=== PATIENT | female | born 1940 | race Caucasian/White ===

== ENCOUNTER → 2017-04-14 08:09 | Outpatient (CLI) | payer MEDICARE, SELFPAY ==
--- NOTE | 2017-04-14 08:36 | MRI_ITS ---
STUDY: MRI LUMBAR SPINE WITHOUT CONTRAST REASON FOR EXAM: Female, 76 years old. Cauda equina syndrome. Degenerative disc disease. Low back pain/spasms radiating to thighs x1 week. TECHNIQUE: Standardized fat and water weighted pulse sequences were obtained in the sagittal and axial planes. COMPARISON: Lumbar spine radiographs 04/13/2017. FINDINGS: T10-T11: (Sagittal only). Normal endplates. Normal disc height, hydration and morphology. Normal central canal and bilateral intervertebral neural foramina. T11-T12: (Sagittal only). Small anterior disc protrusion underneath the small anterior marginal spurs. Normal endplates. Mild disc space height narrowing. No ventral extradural defect. Normal central canal and bilateral intervertebral neural foramina. T12-L1: Normal endplates. Normal disc height, hydration and morphology. Normal bilateral facet joints. Normal central canal and bilateral lateral recesses. Normal bilateral intervertebral neural foramina. Left posterior renal parenchymal cyst is visible at this level. Normal lumbar lordosis. There is no substantial scoliosis. Normal conus medullaris that terminates at the lower L1 vertebral body level. L1-2: Minimal anterior marginal spurs. Normal endplates. Mild disc space height narrowing with moderate loss of disc hydration. Small posterior bulging disc. Normal central canal and bilateral lateral recesses. Normal facet joints. Normal bilateral intervertebral neural foramina. Multiple bilateral renal parenchymal cysts are visible at this level. L2-3: Prominent anterior marginal spurs. Normal endplates. Mild disc space height narrowing with moderate loss of disc hydration. Small right-sided far lateral posterior disc protrusion (series 3, images 10-11; series 2, images 10-11). Normal central canal and bilateral lateral recesses. Moderate right degenerative facet arthropathy. Mild to moderate left degenerative facet arthropathy. Normal bilateral intervertebral neural foramina. L3-4: Normal endplates. Mild disc space height narrowing with moderate loss of disc hydration. Small posterior annular bulging disc. Normal central canal and bilateral lateral recesses. Left posterior ligamentum flavum hypertrophy. Mild to moderate asymmetric degenerative facet arthropathy. Normal bilateral intervertebral neural foramina. L4-5: Pronounced right-sided disc space height narrowing with Modic type I degenerative vertebral marrow edema underneath the right side of the vertebral endplates. Small right far lateral but posterior disc protrusion (series 2 and 3, images 9-10). Normal central canal and bilateral lateral recesses. Mild asymmetric degenerative facet arthropathy. Normal bilateral intervertebral neural foramina. L5-S1: Normal endplates. Normal disc height, hydration and morphology. Normal central canal and bilateral lateral recesses. Moderate right degenerative facet arthropathy. Mild left degenerative facet arthropathy. Normal bilateral intervertebral neural foramina. Normal visualized sacral ala. Normal visualized paraspinous soft tissue structures. MRI/Spine Lumbar (Routine) IMPRESSION: 1. No MRI evidence of lumbar extruded disc fragment or spinal stenosis. 2. Pronounced right-sided L4-L5 disc space height narrowing with Modic type I degenerative vertebral marrow edema underneath the right side of the vertebral endplates with small right far lateral but posterior disc protrusion (series 2 and 3, images 9-10). 3. Small L3-L4 posterior annular bulging disc, left posterior ligamentum flavum hypertrophy and mild to moderate asymmetric degenerative facet arthropathy. 4. Moderate right L5-S1 degenerative facet arthropathy and mild left L5-S1 degenerative facet arthropathy. 5. Small right-sided L2-L3 far lateral but posterior disc protrusion (series 2 and 3, images 10-11). Moderate right L2-L3 degenerative facet arthropathy and mild to moderate left L2-L3 degenerative facet arthropathy. 6. Small L1-L2 posterior bulging disc. 7. Multiple bilateral renal cysts. Electronically Signed: Say Denney MD at 15:25 EST , Service support ,
== END ==
PROVIDERS: Family Provider Internal Medicine; PCP Internal Medicine; Visit Provider Chiropractor
DX: G83.4 Cauda equina syndrome (principal)
CPT/HCPCS: 72148

== ENCOUNTER 2017-08-24 07:43 | Emergency (ER) | payer MEDICARE, SELFPAY ==
[2017-08-24 07:44] VITALS: BP 129/73; PULSE 59; RESP 20; TEMP 36.2; O2SAT 98; BMI 24.2
--- NOTE | 2017-08-24 08:02 | EKG12_ITS ---
Test Reason : SOB Blood Pressure : / mmHG Vent. Rate : 050 BPM Atrial Rate : 050 BPM P-R Int : 166 ms QRS Dur : 066 ms QT Int : 424 ms P-R-T Axes : 071 068 085 degrees QTc Int : 386 ms Sinus bradycardia Otherwise normal ECG Confirmed by HAMMAD RAMOS, CLARISSA ([id number]), movie editor JIA HANSEN ([id number]) on 08/30/2017 2:42:25 PM Referred By: CHANDA Confirmed By:CLARISSA CUEVA MD
--- NOTE | 2017-08-24 08:03 | CT_ITS ---
STUDY: CTA CHEST REASON FOR EXAM: Female, 77 years old. 3 day history of cough and shortness of breath. History of recent travel. RADIATION DOSAGE (If Supplied By Facility): CTDIvol = ( 10.10 ) mGy, DLP = ( 420.79 ) mGycm TECHNIQUE: The examination was performed with the intravenous administration of 75 ml of Isovue 370 contrast material. Post-processing of the angiographic images was performed, with multiplanar reformation and 3D reconstruction. Individualized dose optimization techniques were used for this CT. COMPARISON: None. FINDINGS: Normal enhancement of the main pulmonary artery and right and left pulmonary arteries. Normal enhancement of the bilateral peripheral pulmonary arteries. There is no demonstrated pulmonary embolism. Normal thoracic aorta and visualized great vessels. There is no demonstrated aortic dissection. Normal heart and pericardium. Normal mediastinum. Normal hilar regions. Normal visualized trachea and bronchi. The lungs are well expanded. Focal reticular nodular infiltrate in the posterior lateral portion of the right upper lobe. Radiographic follow-up is recommended. Mild degree of emphysematous changes. Normal pleura. Normal chest wall structures. There are degenerative changes of thoracic spine. There is a 1.5 cm x 3.1 cm oblong fatty nodule in the left adrenal gland. This may represent adenoma. Follow-up is recommended. Small hiatal hernia. CT/CTA Chest W/WO Contrast IMPRESSION: There is no evidence of a pulmonary embolism. Focal reticular nodular changes in the posterior aspect of the right middle lobe as described. Follow-up is recommended. 1.5 cm x 3.1 cm fat-containing nodule in the left adrenal gland. Electronically Signed: Pancho Walker MD at 10:07 EDT Tel [phone], Service support ,
--- NOTE | 2017-08-24 08:04 | VDLE_ITS ---
Reason For Study: Swelling RIGHT LEFT GSV is normal. GSV is normal. CFV is compressible, spontaneous, phasic, CFV is compressible, spontaneous, phasic, competent and demonstrates normal competent, and demonstrates normal augmentation. augmentation. FV is compressible, spontaneous, phasic, FV is compressible, spontaneous, phasic, competent and demonstrates normal competent and demonstrates normal augmentation. augmentation. POP V is compressible, spontaneous, phasic, POP V is compressible, spontaneous, phasic, competent and demonstrates normal competent and demonstrates normal augmentation. augmentation. T/P Trunk is compressible. PTV is compressible. PTV is compressible. LT PerV is compressible. Rt PeroV is dilated and non compressible Lt T/P Trunk is partially compressible with consistent with acute DVT. bright intraluminal echoes consistent with Procedure chronic DVT Exam performed portable in ED. A preliminary report was called and/or faxed Pt unable to tolerate thigh compressions, to Deneen LEIJA. relied on color doppler. Interpretation Summary Deep venous thrombosis right peroneal vein. Chronic deep venous thrombosis left tibioperoneal trunk Patent and compressible bilateral great saphenous veins. Ordering Physician: Katerine Keita Referring Physician: Milady Vizcarra Performed By: Alexandrea Marmolejo RDCS, RVT
--- NOTE | 2017-08-24 08:09 | ED.VISSUMM ---
- ER Visit Summary Date of Service: 08/24/17 Chief Complaint: Shortness of breath and leg swelling History of Present Illness: The patient is a 77 F with prior history of DVTs and asthma, not currently anticoagulated, who presents for 1 day of shortness of breath and lower extremity swelling. Patient states she is recently done a lot of travel, fluid from [place] on Tuesday, took a round trip to [facility] and back in a car the week prior, and flew to and from [place] 1 month ago. She has a history of DVTs but is not currently on Xarelto anymore. She has had some mild shortness of breath since last night with a cough. She is also noticed that her bilateral lower legs were cramping, with swelling at the ankles. She denies chest pain, fever, abdominal pain, nausea or vomiting, back pain or any other complaints other than above. Physical Examination: Vital signs: afebrile, hemodynamically stable, no hypoxia on room air General: well nourished, well developed, in no distress Skin: warm, dry, no rash, no pallor HEENT: normocephalic and atraumatic; PERRL, EOMI, moist mucous membranes Cardiovascular: regular rate and rhythm without murmurs, no peripheral edema, 2+ pulses all distal extremities Respiratory: No increased work of breathing, lungs show mild end expiratory wheezing, no rales or rhonchi Abdominal: Abdomen is soft, nontender with normoactive bowel sounds, no guarding or rebound, no masses MSK: Moves all extremities, no deformities, normal strength, no asymmetry noted, no erythema, palpable cords or edema to the calves or ankles noted Neuro: Awake and alert, oriented ?4. No facial droop, sensation and motor function intact and symmetric Test Results: Abnormal Lab Results 08/24/17 08/24/17 08:07 08:07 WBC 6.5 RBC 4.41 Hgb 13.9 Hct 43.2 MCV 98.0 MCH 31.5 MCHC 32.2 RDW 13.7 RDW Differential 49.0 H Plt Count 357 MPV 8.9 Immature Gran % (Auto) 0.800 Neut % (Auto) 64.4 Lymph % (Auto) 21.3 Emanuel % (Auto) 5.5 Eos % (Auto) 6.6 H Baso % (Auto) 1.4 H Absolute Neuts (auto) 4.2 Absolute Lymphs (auto) 1.39 Total Counted Not Reportable Sodium 141 Potassium 3.8 Chloride 106 Carbon Dioxide 30.0 Anion Gap 5 BUN 21 H Creatinine 0.96 Estim Creat Clear Calc 46.21 Est GFR (MDRD) Af Amer 72 Est GFR (MDRD) Non-Af 60 BUN/Creatinine Ratio 22.0 H Glucose 88 Calcium 8.5 Troponin I < 0.015 Clinical Impression(s) from Imaging Studies Chest CTA 08/24/17 08:03 IMPRESSION: There is no evidence of a pulmonary embolism. Focal reticular nodular changes in the posterior aspect of the right middle lobe as described. Follow-up is recommended. 1.5 cm x 3.1 cm fat-containing nodule in the left adrenal gland. Electronically Signed: Pancho Walekr MD at 10:07 EDT Tel [phone], Service support , Medications Given Discontinued Medications Albuterol/Ipratropium (Duoneb) 3 ml INHALATION X1 ONE Stop: 08/24/17 08:03 Last Admin: 08/24/17 08:18 Dose: 3 ml Sodium Chloride () 1,000 mls @ 999 mls/hr IV .Q1H1M ONE Stop: 08/24/17 09:02 Last Admin: 08/24/17 08:11 Dose: 999 mls/hr Emergency Department Course and Treatment: Patient has history of venous thromboembolism currently not anticoagulated and has had recent multiple long trips either by car or plane. Ultrasounds were performed of the bilateral lower extremities, showing an acute DVT in the right peroneal vein, and a suspected chronic DVT in the left popliteal region. CTA of the chest was performed that showed no pulmonary emboli. EKG showed a sinus rhythm with no ischemic changes. Troponin negative. Labs otherwise unremarkable. Patient was discussed with Dr. Yarbrough, ammonia operator for patient's primary care doctor. Patient will be started on Xarelto again and will follow up with Dr. Vizcarra outpatient. Patient was given a coupon for an initial prescription of Xarelto free. Patient is to discuss possible alternatives to Xarelto given that she is concerned about the cost of it. Patient was discharged home. Treatment Plan: [] Disposition: [] Impression: DVT of the right lower extremity, chronic DVT of the left lower extremity, history of venous thromboembolism This note was generated with [employer] dictation software. It may contain incorrect words, spelling, and punctuation that were not noted in review of the chart prior to signing ED Disposition - Plan for ED Patient: Disposition: Home or Assisted Living Chief Complaint: Shortness of Breath Instructions: ED DVT Prescriptions: Rivaroxaban [Xarelto] 15 mg PO BID #42 tab Referrals: Milady Vizcarra MD [Primary Care Provider] - As soon as possible Additional Instructions: You have been started on Xarelto twice daily for 3 weeks. Please follow-up with your doctor as soon as possible to discuss continuation of this medication versus the possible need for an alternative due to prescription prices. Please use the coupon as you were given for your initial prescription to get a discount. If at any time you develop high fever, shortness of breath, dizziness or lightheadedness, you pass out, have severe chest pain, or any other concerns, please return immediately to the emergency department for another evaluation.
[2017-08-24] MEDS: 0.9% Normal Saline 1,000 ML 999 ML IV (08:11)
--- NOTE | 2017-08-24 08:12 | ED.DCSUM_ITS ---
- ER Visit Summary Date of Service: 08/24/17 Chief Complaint: Shortness of breath and leg swelling History of Present Illness: The patient is a 77 F with prior history of DVTs and asthma, not currently anticoagulated, who presents for 1 day of shortness of breath and lower extremity swelling. Patient states she is recently done a lot of travel, fluid from [place] on Tuesday, took a round trip to [facility] and back in a car the week prior, and flew to and from [place] 1 month ago. She has a history of DVTs but is not currently on Xarelto anymore. She has had some mild shortness of breath since last night with a cough. She is also noticed that her bilateral lower legs were cramping, with swelling at the ankles. She denies chest pain, fever, abdominal pain, nausea or vomiting, back pain or any other complaints other than above. Physical Examination: Vital signs: afebrile, hemodynamically stable, no hypoxia on room air General: well nourished, well developed, in no distress Skin: warm, dry, no rash, no pallor HEENT: normocephalic and atraumatic; PERRL, EOMI, moist mucous membranes Cardiovascular: regular rate and rhythm without murmurs, no peripheral edema, 2 + pulses all distal extremities Respiratory: No increased work of breathing, lungs show mild end expiratory wheezing, no rales or rhonchi Abdominal: Abdomen is soft, nontender with normoactive bowel sounds, no guarding or rebound, no masses MSK: Moves all extremities, no deformities, normal strength, no asymmetry noted , no erythema, palpable cords or edema to the calves or ankles noted Neuro: Awake and alert, oriented ?4. No facial droop, sensation and motor function intact and symmetric Test Results: Abnormal Lab Results 08/24/17 08/24/17 08:07 08:07 WBC 6.5 RBC 4.41 Hgb 13.9 Hct 43.2 MCV 98.0 MCH 31.5 MCHC 32.2 RDW 13.7 RDW Differential 49.0 H Plt Count 357 MPV 8.9 Immature Gran % (Auto) 0.800 Neut % (Auto) 64.4 Lymph % (Auto) 21.3 Roberts % (Auto) 5.5 Eos % (Auto) 6.6 H Baso % (Auto) 1.4 H Absolute Neuts (auto) 4.2 Absolute Lymphs (auto) 1.39 Total Counted Not Reportable Sodium 141 Potassium 3.8 Chloride 106 Carbon Dioxide 30.0 Anion Gap 5 BUN 21 H Creatinine 0.96 Estim Creat Clear Calc 46.21 Est GFR (MDRD) Af Amer 72 Est GFR (MDRD) Non-Af 60 BUN/Creatinine Ratio 22.0 H Glucose 88 Calcium 8.5 Troponin I < 0.015 Clinical Impression(s) from Imaging Studies Chest CTA 08/24/17 08:03 IMPRESSION: There is no evidence of a pulmonary embolism. Focal reticular nodular changes in the posterior aspect of the right middle lobe as described. Follow-up is recommended. 1.5 cm x 3.1 cm fat-containing nodule in the left adrenal gland. Electronically Signed: Pancho Walker MD at 10:07 EDT Tel [phone], Service support , Medications Given Discontinued Medications Albuterol/Ipratropium (Duoneb) 3 ml INHALATION X1 ONE Stop: 08/24/17 08:03 Last Admin: 08/24/17 08:18 Dose: 3 ml Sodium Chloride () 1,000 mls @ 999 mls/hr IV .Q1H1M ONE Stop: 08/24/17 09:02 Last Admin: 08/24/17 08:11 Dose: 999 mls/hr Emergency Department Course and Treatment: Patient has history of venous thromboembolism currently not anticoagulated and has had recent multiple long trips either by car or plane. Ultrasounds were performed of the bilateral lower extremities, showing an acute DVT in the right peroneal vein, and a suspected chronic DVT in the left popliteal region. CTA of the chest was performed that showed no pulmonary emboli. EKG showed a sinus rhythm with no ischemic changes. Troponin negative. Labs otherwise unremarkable. Patient was discussed with Dr. Yarbrough, secretary board of commissioners for patient's primary care doctor. Patient will be started on Xarelto again and will follow up with Dr. Vizcarra outpatient. Patient was given a coupon for an initial prescription of Xarelto free. Patient is to discuss possible alternatives to Xarelto given that she is concerned about the cost of it. Patient was discharged home. Treatment Plan: [] Disposition: [] Impression: DVT of the right lower extremity, chronic DVT of the left lower extremity, history of venous thromboembolism This note was generated with [employer] dictation software. It may contain incorrect words, spelling, and punctuation that were not noted in review of the chart prior to signing ED Disposition - Plan for ED Patient: Disposition: Home or Assisted Living Chief Complaint: Shortness of Breath Instructions: ED DVT Prescriptions: Rivaroxaban [Xarelto] 15 mg PO BID #42 tab Referrals: Milady Vizcarra MD [Primary Care Provider] - As soon as possible Additional Instructions: You have been started on Xarelto twice daily for 3 weeks. Please follow-up with your doctor as soon as possible to discuss continuation of this medication versus the possible need for an alternative due to prescription prices. Please use the coupon as you were given for your initial prescription to get a discount. If at any time you develop high fever, shortness of breath, dizziness or lightheadedness, you pass out, have severe chest pain, or any other concerns, please return immediately to the emergency department for another evaluation.
[2017-08-24 08:15] VITALS: O2SAT 99
[2017-08-24 08:18] VITALS: PULSE 56; RESP 16
[2017-08-24] MEDS: Ipratropium/Albuterol Sulfate 3 ML AMPUL.NEB INHALATION (08:18)
[2017-08-24 08:25] LABS: Absolute Lymphocyte Count 1.39 X10^3/ul (0.83-4.51); Absolute Neutrophil Count 4.2 X10^3/uL (2.0-7.7); Basophil# 0.09 X10^3/uL; Basophil% 1.4 % (0-1); Eosinophil# 0.43 X10^3/uL; Eosinophils% 6.6 % (0-5); Hematocrit 43.2 % (37-47); Hemoglobin 13.9 g/dl (12.0-15.0); Lymphocyte # 1.39 X10^3/ul (4.0); Lymphocyte % 21.3 % (19-41); Mean Corp Hgb Conc 32.2 g/gl (32-36); Mean Corpuscular Hgb 31.5 pg (27.0-32.0); Mean Platelet Vol. 8.9 fl (6.2-12.0); Monocyte# 0.36 X10^3/uL; Monocyte% 5.5 % (0-10); Neutrophil # 4.22 X10^3/uL (2.7-7.7); Neutrophil % 64.4 % (47-70); Platelet Count 357 K/mm3 (150-450); RBC Distribution Width CV 13.7 % (11.6-14.6); Red Blood Count 4.41 M/mm3 (4.2-5.4); White Blood Count 6.5 K/mm3 (4.4-11.0)
[2017-08-24 08:26] LABS: POSITIVE COUNT NO; POSITIVE DIFFERENTIAL NO; POSITIVE MORPHOLOGY NO
[2017-08-24 08:44] LABS: Anion Gap 5 (5-15); BUN 21 mg/dL (7-18); Calcium,Total 8.5 mg/dL (8.5-10.1); Chloride 106 mmol/L (98-107); Creatinine, Serum 0.96 mg/dL (0.55-1.02); EST Glomerular Filtration Rate 60 mL/min (>60); Est Glom Filt Rate - Afr Amer 72 mL/min (>60); Estimated Creatinine Clearance 46.21 ml/min; Glucose 88 mg/dL (74-106); Potassium 3.8 mmol/L (3.5-5.1); Sodium Level 141 mmol/L (136-145)
[2017-08-24 10:16] VITALS: BP 128/60; PULSE 56; RESP 18; O2SAT 96
--- NOTE | 2017-08-24 11:05 | ED.DEP ---
ED Disposition - Plan for ED Patient: Disposition: Home or Assisted Living Chief Complaint: Shortness of Breath Instructions: ED DVT Prescriptions: Rivaroxaban [Xarelto] 15 mg PO BID #42 tab Referrals: Milady Vizcarra MD [Primary Care Provider] - As soon as possible Additional Instructions: You have been started on Xarelto twice daily for 3 weeks. Please follow-up with your doctor as soon as possible to discuss continuation of this medication versus the possible need for an alternative due to prescription prices. Please use the coupon as you were given for your initial prescription to get a discount. If at any time you develop high fever, shortness of breath, dizziness or lightheadedness, you pass out, have severe chest pain, or any other concerns, please return immediately to the emergency department for another evaluation.
[2017-08-24 11:34] VITALS: BP 119/63; PULSE 70; RESP 16; O2SAT 99
== END 2017-08-24 11:34 | disposition home or self-care (01) ==
PROVIDERS: Emergency Provider Emergency Medicine; Family Provider Internal Medicine; PCP Internal Medicine
DX: I82.491 Acute embolism and thrombosis of other specified deep vein of right lower extremity (principal); I82.502 Chronic embolism and thrombosis of unspecified deep veins of left lower extremity; Z86.718 Personal history of other venous thrombosis and embolism; R06.09 Other forms of dyspnea; R05 Cough; E27.9 Disorder of adrenal gland, unspecified; J45.909 Unspecified asthma, uncomplicated
CPT/HCPCS: 71275; 80048; 84484; 85025; 93005; 93970; 94640; 96360; 99284; J7030; Q9967; A4216

== ENCOUNTER 2018-08-16 07:42 | Emergency (ER) | payer MEDICARE, SELFPAY ==
[2018-08-16 07:43] VITALS: BP 152/74; PULSE 57; RESP 16; TEMP 36.6; O2SAT 100; BMI 24.4
--- NOTE | 2018-08-16 07:52 | RAD_ITS ---
STUDY: X-RAY CHEST REASON FOR EXAM: Female, 78 years old. Chest pain. TECHNIQUE: Single AP portable view of the chest. COMPARISON: None. FINDINGS: EKG electrodes are seen. Hyperinflation. No acute infiltrate is seen. There is no demonstrated pleural abnormality. Normal size heart. Normal mediastinum and zach. Normal visualized pulmonary arteries. There is atherosclerotic tortuosity of the aortic arch and descending thoracic aorta. There are diffuse degenerative changes of the visualized thoracic spine. Normal visualized ribs, clavicles, and shoulders. There is no demonstrated abnormality of the visualized soft tissue structures of the upper abdomen. RAD/Chest 1 View (Portable) IMPRESSION: Hyperinflation. No acute abnormality is seen. Electronically Signed: Pancho Walker, at 9:09 EDT , Service support ,
--- NOTE | 2018-08-16 07:53 | EKG12_ITS ---
Test Reason : SOB Blood Pressure : / mmHG Vent. Rate : 055 BPM Atrial Rate : 055 BPM P-R Int : 158 ms QRS Dur : 070 ms QT Int : 414 ms P-R-T Axes : 074 064 075 degrees QTc Int : 396 ms Sinus bradycardia Otherwise normal ECG Confirmed by WESLY COLLINS ([id number]), editor managing newspaper EUSEBIO MINAYA ([id number]) on 08/21/2018 12:59:16 PM Referred By: YANNA Confirmed By:WESLY COLLINS
--- NOTE | 2018-08-16 07:54 | VDLE_ITS ---
Reason For Study: Pain RIGHT LEFT GSV is normal. GSV is normal. CFV is compressible, spontaneous, phasic, CFV is compressible, spontaneous, phasic, competent and demonstrates normal competent, and demonstrates normal augmentation. augmentation. FV is compressible, spontaneous, phasic, FV is compressible, spontaneous, phasic, competent and demonstrates normal competent and demonstrates normal augmentation. augmentation. POP V is compressible, spontaneous, phasic, POP V is compressible, spontaneous, phasic, competent and demonstrates normal competent and demonstrates normal augmentation. augmentation. T/P Trunk is compressible. T/P Trunk is compressible. PTV is compressible. PTV is compressible. RT PerV is compressible. LT PerV is compressible. Procedure Exam performed portable in ED. A preliminary report was called and/or faxed to [facility]. Interpretation Summary No evidence for acute deep venous thrombosis bilateral lower extremities with patent and compressible bilateral great saphenous veins. Ordering Physician: Nena Schmid Referring Physician: Milady Vizcarra M.D. Performed By: Deneen Alanis RVT
--- NOTE | 2018-08-16 07:56 | ED.DCSUM_ITS ---
- ER Visit Summary Date of Service: 08/16/18 Chief Complaint: Short of breath, leg pain History of Present Illness: The patient is a 78 F who had bilateral leg cramps overnight. She states she had some slight chest heaviness and shortness of breath as well. She is a history of 2 prior DVTs, both with known triggers. She is currently only on aspirin. Physical Examination: Vital signs grossly unremarkable. Respiratory rate is 16 and pulse ox is 100% on room air. Patient sitting upright in bed no acute distress. Head and neck examination unremarkable. Heart is bradycardic and regular. Lung sounds are clear. Abdomen is soft nontender. Lower extremity examination was no calf tenderness or edema. She has strong distal pulses. No skin discoloration. Test Results: EKG is sinus bradycardia 55 bpm with no sign of acute ischemia. Portable chest x-ray reveals hyperinflation with no acute disease. CBC significant only for platelet count of 182,000. Chemistry studies reveal a sodium of 133. Troponin is negative. Venous ultrasound of both legs shows no DVT. Emergency Department Course and Treatment: Repeat evaluation patient is resting comfortably. She states she is breathing better. Her O2 sats remained between 95 and 100%. I do not think that she has a pulmonary embolism. She now tells me that she has been on Bactrim for the past 6 days and is wondering if that may be the cause of her leg cramping. It sounds like she had a simple UTI with no back pain or sign of pyelonephritis. I told her she could stop the antibiotic. Treatment Plan: [] Disposition: Discharge Impression: Myalgias This note was generated with [employer] dictation software. It may contain incorrect words, spelling, and punctuation that were not noted in review of the chart prior to signing ED Disposition - Plan for ED Patient: Disposition: Home or Assisted Living Instructions: Myalgias Referrals: Milady Vizcarra MD [Primary Care Provider] - 1 Week if not improving
[2018-08-16 08:23] VITALS: BP 133/58; PULSE 58; RESP 15; O2SAT 97
[2018-08-16 08:27] VITALS: O2SAT 99
[2018-08-16] MEDS: 0.9% Normal Saline 1,000 ML 15 ML IV (08:28)
[2018-08-16 08:32] LABS: Absolute Lymphocyte Count 0.92 X10^3/ul (0.83-4.51); Absolute Neutrophil Count 5.9 X10^3/uL (2.0-7.7); Basophil# 0.12 X10^3/uL; Basophil% 1.5 % (0-1); Eosinophil# 0.27 X10^3/uL; Eosinophils% 3.5 % (0-5); Hematocrit 42.1 % (37-47); Hemoglobin 13.7 g/dl (12.0-15.0); Lymphocyte # 0.92 X10^3/ul (4.0); Lymphocyte % 11.8 % (19-41); Mean Corp Hgb Conc 32.5 g/gl (32-36); Mean Corpuscular Hgb 31.4 pg (27.0-32.0); Mean Corpuscular Volume 96.3 fL (81-99); Mean Platelet Vol. 9.1 fl (6.2-12.0); Monocyte# 0.52 X10^3/uL; Monocyte% 6.7 % (0-10); Neutrophil # 5.92 X10^3/uL (2.7-7.7); Neutrophil % 75.7 % (47-70); POSITIVE COUNT NO; POSITIVE DIFFERENTIAL NO; POSITIVE MORPHOLOGY NO; Platelet Count 482 K/mm3 (150-450); RBC Distribution Width SD 49.3 fl (35.1-43.9); Red Blood Count 4.37 M/mm3 (4.2-5.4); White Blood Count 7.8 K/mm3 (4.4-11.0)
[2018-08-16 08:50] LABS: Anion Gap 8 (5-15); BUN 15 mg/dL (7-18); Calcium,Total 8.8 mg/dL (8.5-10.1); Chloride 99 mmol/L (98-107); Creatinine, Serum 1.15 mg/dL (0.55-1.02); EST Glomerular Filtration Rate 48 mL/min (>60); Est Glom Filt Rate - Afr Amer 58 mL/min (>60); Estimated Creatinine Clearance 36.53 ml/min; Glucose 96 mg/dL (74-106); Potassium 3.9 mmol/L (3.5-5.1); Sodium Level 133 mmol/L (136-145)
[2018-08-16 09:11] VITALS: BP 145/79; PULSE 56; RESP 19; O2SAT 96
[2018-08-16 10:21] VITALS: BP 129/65; PULSE 64; RESP 14; O2SAT 96
== END 2018-08-16 10:26 | disposition home or self-care (01) ==
PROVIDERS: Emergency Provider Emergency Medicine; Family Provider Internal Medicine; PCP Internal Medicine
DX: M79.10 Myalgia, unspecified site (principal); R25.2 Cramp and spasm; R07.89 Other chest pain; R06.00 Dyspnea, unspecified; J45.909 Unspecified asthma, uncomplicated; Z86.718 Personal history of other venous thrombosis and embolism; Z79.82 Long term (current) use of aspirin; Z87.891 Personal history of nicotine dependence
CPT/HCPCS: 71045; 80048; 84484; 85025; 93005; 93970; 96360; 96361; 99284; J7030; A4216

== ENCOUNTER 2018-10-12 05:50 | Day surgery (SDC) | payer MEDICARE, SELFPAY ==
--- NOTE | 2018-10-11 20:26 | HP.PCM_ITS ---
History and Physical Date of Admission: 10/11/18 Xiomara Stanley 1940 ? ? REFERRING PHYSICIAN: Viridiana Eduardo (Retail Sales Associate Seasonal), DISTRICT ADMINISTRATIVE ASSISTANT.* ? CHIEF COMPLAINT: Inguinal Hernia Repair-2 ? HPI: The patient is a pleasant 78 year old female presents with complaint of right groin pain. Referred from her primary physician's office for evaluation of right inguinal hernia. For about two months, she has noted pressure discomfort sensation in the area. Had attributed this to her rectocoele. However, noted increased pressure discomfort last week and then felt a lump in the area that she hadn't noted before. She then palpated in the area and felt a pop sensation and realized that this could be a hernia. This morning, she noted a lump in the area but she could not easily push it back in. She therefore went to her primary physician's office and then was referred to this office for treatment. She denies previous hernia repairs. ?? PAST MEDICAL HISTORY ? Circumscribed scleroderma ? ? Lychen's Sclerosis ? Diverticulosis of colon (without mention of hemorrhage) ? ? DVT of lower limb, acute (HCC) 03/08/2017 ? DVT left tibioperoneal trunk, posterior tibial vein, peroneal vein and soleus vein. After flight. On Xarelto ? External hemorrhoids with other complication ? ? Fracture of metatarsal ? ? 3rd, right foot ? Internal hemorrhoids without mention of complication ? ? Migraine headache ? ? Personal history of colonic polyps ? ? Unspecified asthma(493.90) ? ? only when pt has bronchitis ? PAST SURGICAL HISTORY ? COLONOS W/REM POLYP SNARE ? 06/15/06 ? Repeat in 1-2 years ? COLONOSCOP W/ OR W/O [facility] SPEC ? 08/16/08 ? Diverticulosis ? COLONOSCOP W/ OR W/O BRS SPEC ? 08-15-15 ? CORRECT BUNION,SIMPLE ? 1999 ? Right foot ? REMOVE TONSILS/ADENOIDS,<12 Y/O ? child ? ? Current Outpatient Medications: albuterol HFA (VENTOLIN HFA) 90 mcg/actuation inhaler Inhale 2 Puffs as instructed every 4 hours as needed. predniSONE (DELTASONE) 10 mg tablet Take 4 tablets by mouth daily x2 days, 3 tabs daily x2 days, 2 tabs daily x2 days, 1 tab daily x2 days, then stop. fluticasone-salmeterol HFA (ADVAIR) 115-21 mcg/actuation inhaler Inhale 2 Puffs as instructed twice daily. polyethylene glycol 3350 (MIRALAX) 17 gram/dose powder Take as directed to prevent constipation cyclobenzaprine (FLEXERIL) 10 mg tablet Take 1 tablet by mouth at bedtime as needed for Muscle Spasm. May make drowsy clobetasol (TEMOVATE) 0.05 % ointment Apply 1 application to affected area twice daily. fluticasone (FLONASE) 50 mcg/actuation nasal spray Use 1 Keymar in each nostril as needed. ? ? ALLERGIES: Hydrocodone; Metrogel [Metronidazole]; Sulfa (Sulfonamide Antibiotics); Tramadol; Tylenol [Acetaminophen] ? 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 FAMILY HISTORY Adopted: Yes ? other (Thyroid cancer.) Son ? ? ? REVIEW OF SYSTEMS: General: The patient denies fatigue, denies weight loss, denies weight gain, denies feeling hot, and denies feelings of cold. Eyes: The patient denies glaucoma, denies eye injury/surgery, wears glasses or contacts. Ear/Nose/Throat: The patient denies allergies, denies hayfever, denies ear infections, and denies bloody noses. Cardiovascular: The patient denies chest pain, denies heart disease, denies high blood pressure,denies cardiac stent, denies prior heart attack, denies irregular heart beat, denies high cholesterol, denies poor circulation, denies heart failure, other cardiac issues, denies claudication, denies cold feet, denies peripheral arterial stent. Respiratory: The patient denies tuberculosis, denies pneumonia, denies frequent cough, denies pulmonary embolism, denies shortness of breath, and denies coughing up blood. Gastrointestinal: The patient denies difficulty swallowing, denies acid reflux, denies ulcers, denies vomiting, denies jaundice/hepatitis, denies gallbladder problems, denies black or tarry stools, denies hemorrhoids, denies bleeding from rectum, denies diverticulitis, denies constipation, denies diarrhea, denies loss of stool control, and denies hernias. Kidney/Bladder: The patient denies kidney stones, NOTES urine infections, and denies bloody urine. Skin: The patient denies a history of skin cancer, denies bleeding/changing moles, and denies a history of skin rash. Neurologic: The patient denies a history of epilepsy/convulsions, denies headaches, denies head/spinal injuries, and denies stroke/TIA. Psychiatric: The patient denies psychiatric medications, denies depression, and denies voices, denies substance abuse. Endocrine: The patient denies thyroid disorders, denies diabetes, and denies hormonal problems. Hematologic: The patient NOTES a history of bruising, denies bleeding, and denies anemia, denies blood clots. Infections: The patient denies a history of measles and mumps, denies rheumatic fever, and denies sexually transmitted diseases. Musculoskeletal: The patient denies back pain/injury, NOTES back problems, denies sciatica, denies knee/foot trouble, denies arthritis, or denies gout. ? PHYSICAL EXAMINATION: General: The patient is 78 year old female, well nourished, well hydrated in no acute distress. The patient is oriented to time, place, and person. VITALS: Blood pressure 100/80, pulse (!) 53, resp. rate 16, weight 68 kg (150 lb), SpO2 99 %. Body mass index is 23.85 kg/m?. Head ? Normocephalic. EOM intact with sclera clear and no icterus noted. Wearing glasses. Mouth with mucus membranes moist. Neck - supple with no jugular venous distention noted. Trachea is midline. No carotid bruits noted. No masses noted. Lungs ? clear to auscultation. Normal breath sounds. No rales/rhonchi/wheezing noted. No labored breathing noted, such as retractions. Heart ? normal S1 and S2 auscultated. No rubs/clicks/murmurs noted. Regular rate. Abdomen ? soft and benign. Normal bowel sounds. No abdominal bruits noted. No masses noted. Right inguinal hernia - reduced completely in the office, but easily pops out Extremities ? no calf tenderness noted. No pitting edema noted. Varicose veins noted Skin ? normal skin integrity. Neurological ? gait normal, no focal deficits noted Psych ? calm and appropriate ? ? IMPRESSION: right inguinal hernia - reducible ? PLAN: I have discussed the above with the patient. I have offered right inguinal hernia repair with mesh. I have explained the procedure to the patient. I have counseled the patient as to the risks of the procedure, including but not limited to: infection, bleeding, injury to any blood vessels/nerves, scar tissue, injury to any intraabdominal organs, injury to bowel/bladder, intraabdominal abscess/bleeding, recurrence of hernia, wound infections, complications of anesthesia, etc. ? the patient understands. The patient wishes to proceed. I have answered all questions to the patient?s satisfaction and the patient has no further questions. . Diagnoses: (R10.31) Right groin pain (primary encounter diagnosis) (K40.90) Right inguinal hernia ?
[2018-10-12] VITALS (7 sets, daily range): BP systolic 112–137; BP diastolic 69–92; PULSE 63–81; RESP 16; TEMP 36.2–36.8; O2SAT 96–100; BMI 23.7
[2018-10-12] MEDS: Lactated Ringers 1,000 ML 75 ML IV ×2 (07:06→09:01)
[2018-10-12] MEDS: Cefazolin 2 GM in 0.9% Normal Saline 100 ML IV (07:17)
--- NOTE | 2018-10-12 07:20 | DCINST_ITS ---
Discharge Diet: No Restrictions Discharge Activity: Return to Normal Activity, May not drive while taking narcotic pain medications. Lifting Restrictions: no lifting greater than 20 pounds for a month Additional Activity Instructions:: Ambulation is encouraged Call your doctor if your incision/area has: Continuous Slow Oozing, Foul Smelling Discharge Call your doctor if you observe: Fever of 101 or Higher Additional Dressing/Incision Instructions:: Leave dressing intact. May get wet in shower. Do not soak - no tub baths/swimming. Apply ice to area for comfort as tolerated Allergies/Adverse Reactions: Allergies acetaminophen [From Tylenol] Adverse Reaction (Verified 10/11/18 10:36) Other hydrocodone Adverse Reaction (Verified 10/11/18 10:36) Nausea/Vom/Diarrhea metronidazole Adverse Reaction (Verified 10/11/18 10:36) Other Sulfa (Sulfonamide Antibiotics) Adverse Reaction (Verified 10/12/18 06:39) Shortness of breath Medications to take at Discharge Fluticasone/Salmeterol [Advair Hfa 115-21 Mcg Inhaler] 2 inhaler INHALATION BID 03/04/17 Aspirin [Aspirin, Baby] 81 mg PO BID 08/16/18 Albuterol Inhaler [Ventolin Hfa (SP)] 1 - 2 puff INHALATION Q6H PRN PRN 10/11/18 Cholecalciferol (VIT D3) [Vitamin D] 1,000 unit PO DAILY 10/11/18 Oxycodone [Oxyir] 5 mg PO Q12H PRN PRN 3 Days #6 tab 10/12/18 The following prescriptions were given: Oxycodone [Oxyir] 5 mg PO Q12H PRN PRN 3 Days #6 tab PRN Reason: Mod-Severe Pain (4-11/23) Prescription Printed Primary Care Physician: Milady Vizcarra MD [Primary Care Provider] - Test Results: Test results from this visit will be discussed in further detail at your follow- up appointment, if applicable. Please Follow Up With: Stacey Paniagua MD - call When: to be seen in 1-2 weeks, please call for date and time, thank you
--- NOTE | 2018-10-12 07:23 | OP.PCM_ITS ---
Report of Operation Date of Procedure: 10/12/18 Pre-Operative Diagnosis: right inguinal hernia Post-Operative Diagnosis: right femoral hernia Surgery/Procedure Performed:: right femoral hernia repair with mesh Description of Surgical Findings:: right femoral hernia noted - not incarcerated, attenuated external oblique and internal oblique fascia Type of Anesthesia:: Local MAC Anesthesiologist: Vel Sidhu Specimen's removed: none Estimated Blood Loss (mL): < 10 ml Fluids Replaced: 1000 ml RL Description of Procedure: After informed consent was obtained, patient was brought to the Operating Room. Appropriate time out protocol was followed. She was then placed in the supine position on the operating room table. The patient was then placed under anesthesia. The lower torso and the right groin area were then prepped with a surgical skin preparation and appropriate sterile surgical drapes were placed. The anatomical landmarks were identified and after anesthetizing the skin and subcutaneous tissues with 0.25% Marcaine with epinephrine, a transverse skin incision was made above the level of the internal inguinal ring. The subcutaneous tissues were then sharply dissected down to the external oblique fascia and any hemorrhage was adequately controlled with electrocoagulation. The external oblique was then divided obliquely along the fibers and a muscle- splitting incision was then made to divide the internal oblique musculature and fascia. The transversalis fascia was then identified and was then incised parallel to the inferior hypogastric vessels. The preperitoneal space was then entered. Blunt dissection was then done to identify out Sincere's ligament, the pubic tubercle and a large area surrounding these landmarks for placement of the mesh. The iliac vessels were identified. The patient did have a femoral hernia. There was an internal hernia sac identified. The peritoneal sac was then from the round ligament by blunt and sharp dissection. There was no incarceration of any intraabdominal contents. There is no evidence of any other opening in the peritoneum. The peritoneal opening that was created was then closed using a running 3-0 Vicryl suture. A large sized right sided Bard 3D mesh was then placed in the preperitoneal space such that it would be overlapping medially beyond the pubic tubercle and overlapping inferior to Sincere's ligament. A 5 mm tack was then placed at the medial aspect and the mesh was tacked to the pubic tubercle. The mesh was completely flattened out against the anterior abdominal wall. The patient was then placed in the reversed [place] position to ensure that the mesh was laid out properly according to terminal press operator's guidelines. The mesh covered the entire wound opening also. The internal oblique fascia was then closed using interrupted 0 prolene suture. One of the sutures was used to lock the mesh into position. Hemostasis was carefully controlled with electrocoagulation. The external oblique fascia was then reapproximated using a running 0 Vicryl suture. This was carefully done to avoid any entrapment of blood vessels/nerves. Juan's fascia was closed using Vicryl suture in an interrupted simple fashion. The skin incision was closed with 4-0 Monocryl in a running subcuticular fashion. Cavilon and Steri-Strips were used to reinforce the skin closure and appropriate sterile dressing was applied. The patient was brought to the Recovery Room in stable condition. Grafts/Implants Used: Bard 3D Max mesh right side large, Lot [id number], exp 2023-06-12 - Complications none noted - Admit VTE Documentation VTE Present on Admission: Yes VTE Mechan Device Prophylaxis: SCD's
[2018-10-12] MEDS: Bupivacaine 0.25% 30 ML Vial (08:25)
== END 2018-10-12 10:23 | disposition home or self-care (01) ==
LOC: SDC 05:51 → AC 05:52
PROVIDERS: Family Provider Internal Medicine; PCP Internal Medicine; Referring Provider Surgery; Visit Provider Surgery
PROC: (CPT 49550; principal; 2018-10-12 07:15)
DX: K41.90 Unilateral femoral hernia, without obstruction or gangrene, not specified as recurrent (principal); Z86.718 Personal history of other venous thrombosis and embolism; R00.1 Bradycardia, unspecified; Z79.82 Long term (current) use of aspirin; Z87.891 Personal history of nicotine dependence; J45.909 Unspecified asthma, uncomplicated
CPT/HCPCS: 00830; 49550; J7120; C1781; J2405

== ENCOUNTER → 2019-08-06 | Outpatient (CLI) | payer MEDICARE, SELFPAY ==
[2018-10-12 06:41] VITALS: BMI 23.7
[2019-08-07 08:30] LABS: D-Dimer Quantitative (DVT/PE) 1.18 FEU/ug/m (0.27-0.49)
== END | disposition home or self-care (01) ==
LOC: LABSPEC 16:59
PROVIDERS: PCP Internal Medicine; Referring Provider Nurse Practitioner; Visit Provider Nurse Practitioner
DX: M79.662 Pain in left lower leg (principal); M79.89 Other specified soft tissue disorders; Z86.718 Personal history of other venous thrombosis and embolism
CPT/HCPCS: 85379

== ENCOUNTER → 2019-12-10 13:44 | Outpatient (CLI) | payer MEDICARE, SELFPAY ==
[2018-10-12 06:41] VITALS: BMI 23.7
--- NOTE | 2019-12-10 13:47 | US_ITS ---
STUDY: RENAL ULTRASOUND - COMPLETE REASON FOR EXAM: Female, 79 years old. Recurring urinary tract infections. TECHNIQUE: Ultrasound evaluation of the kidneys was performed with real-time and static lynch-scale imaging. COMPARISON: None. FINDINGS: RIGHT KIDNEY: Normal location of the right kidney, which is normal in size. The right kidney measures 10.0 x 4.7 x 4.1 cm. There is a normal cortex of the right kidney. Midpole simple cyst measuring 1.7 x 1.3 x 1.3 cm There are no right renal calculi. There is no right hydronephrosis. DISTAL RIGHT URETER: There is non-visualization of the distal right ureter. There is no demonstrated right ureterovesical junction calculus. There is no demonstrated right ureteral jet. LEFT KIDNEY: Normal location of the left kidney, which is normal in size. The left kidney measures 9.8 x 4.3 x 4.1 cm. There is a normal cortex of the left kidney. Multiple cysts the largest measuring 1.3 x 1.2 x 1.0 cm. There are no left renal calculi. There is no left hydronephrosis. DISTAL LEFT URETER: There is non-visualization of the distal left ureter. There is no demonstrated left ureterovesical junction calculus. There is no demonstrated left ureteral jet. BLADDER: The distended urinary bladder has a volume of 163 ml. There is a normal wall thickness of the distended urinary bladder. There is no demonstrated mass within the urinary bladder. There are no demonstrated bladder calculi. US/Kidney and Bladder IMPRESSION: No hydronephrosis. Bilateral simple renal cysts. Normal bladder.. Electronically Signed: Ralph Colon MD at 6:31 EDT , Service support ,
== END ==
PROVIDERS: PCP Internal Medicine; Referring Provider Urology; Visit Provider Urology
DX: N39.0 Urinary tract infection, site not specified (principal)
CPT/HCPCS: 76770

== ENCOUNTER 2021-03-13 11:29 | Emergency (ER) | payer MEDICARE, SELFPAY ==
[2021-03-13 11:29] VITALS: BP 134/73; PULSE 64; RESP 18; TEMP 35.9; O2SAT 97; BMI 22.6
[2021-03-13 11:38] VITALS: O2SAT 99
--- NOTE | 2021-03-13 12:03 | EKG12_ITS ---
Test Reason : SOB Blood Pressure : / mmHG Vent. Rate : 059 BPM Atrial Rate : 059 BPM P-R Int : 166 ms QRS Dur : 068 ms QT Int : 394 ms P-R-T Axes : 078 055 066 degrees QTc Int : 390 ms Sinus bradycardia Otherwise normal ECG Confirmed by HAMMAD RAMOS, CLARISSA ([id number]), web editor EUSEBIO MINAYA ([id number]) on 03/16/2021 10:46:29 AM Referred By: VICKIE Confirmed By:CLARISSA CUEVA MD
--- NOTE | 2021-03-13 12:03 | CT_ITS ---
STUDY: CTA CHEST REASON FOR EXAM: Female, 80 years old. Shortness of Breath. Chest pain. History of prior DVT. RADIATION DOSAGE (If Supplied By Facility): CTDIvol = ( 5.38 ) mGy, DLP = ( 177.07 ) mGycm TECHNIQUE: The examination was performed with the intravenous administration of IV 100mL [id number]-370. Post-processing of the angiographic images was performed, with multiplanar reformation and 3D reconstruction. Individualized dose optimization techniques were used for this CT. COMPARISON: None. FINDINGS: Normal enhancement of the main pulmonary artery and right and left pulmonary arteries. Normal enhancement of the bilateral peripheral pulmonary arteries. There is no demonstrated pulmonary embolism. There is atherosclerotic calcification of the aortic arch with tortuosity. There is no demonstrated aortic dissection. There are calcifications of the coronary arteries. There are visualized mediastinal lymph nodes, which are within normal size limits, and with normal morphology. Normal hilar regions. Normal visualized trachea and bronchi. Hyperinflation. Mild degree of emphysematous changes. There is a new 8.1 mm x 4.5 mm noncalcified nodule in the posterior medial aspect of the right upper lobe abutting the right major fissure. Minimal linear scarring is seen in the posterior medial segment of the right lower lobe. Normal pleura. Normal chest wall structures. There are degenerative changes of thoracic spine. Diffuse enlargement of the left adrenal gland suggestive of a adrenal hyperplasia. A small adenoma cannot be excluded. CT/CTA Chest W/WO Contrast IMPRESSION: No evidence of a pulmonary embolism. Emphysematous changes. There is a new 8.1 mm x 4.5 mm noncalcified nodule in the posterior medial segment of the right upper lobe abutting the right major fissure. Correlation with a PET scan is recommended. Electronically Signed: Pancho Walker MD at 13:44 EST ,
--- NOTE | 2021-03-13 12:04 | EX.ED.DYSGE1 ---
HPI History of Present Illness Chief Complaint: Shortness of Breath Narrative Narrative: Patient with past medical history of asthma, degenerative disc disease of the lumbar spine presents with left scapular back pain that began last evening. She states before she went to bed she felt a sharp stabbing pain in the left scapular area. She took 2 aspirin and went to bed. She was able to sleep during the night but awoke this morning with increased frequency of the sharp stabbing pain in her left back/scapula. She denies any nausea or vomiting. No other symptoms. It is worse when she tries to sit up or stand, she notices it may come more frequently. There is mild pain with movement of her left arm. She states that she is concerned because her asthma has been causing her shortness of breath with her pain, and additionally she has had history of DVTs for which she only takes aspirin because she could not tolerate other anticoagulants. She is concerned she may have a pulmonary embolism. [facility] Medical History (Updated 03/13/21 @ 15:29 by Say Perales MD) DVT (deep venous thrombosis) Home Medications fluticasone propion-salmeterol [Advair Hfa 115-21 Mcg Inhaler] 2 inhaler INHALATION BID 03/04/17 [History Last Taken Unknown] aspirin 81 mg PO BID 08/16/18 [History Last Taken 10/11/18] albuterol sulfate 1 - 2 puff INHALATION Q6H PRN PRN 10/11/18 [History Last Taken Unknown] cholecalciferol (vitamin D3) 1,000 unit PO DAILY 10/11/18 [History Last Taken Unknown] Allergy/AdvReac Type Severity Reaction Status Date / Time acetaminophen [From Tylenol] AdvReac Other Verified 03/13/21 11:31 hydrocodone AdvReac Nausea/Vom/ Verified 03/13/21 11:31 Diarrhea metronidazole AdvReac Other Verified 03/13/21 11:31 Sulfa (Sulfonamide AdvReac Shortness Verified 03/13/21 11:31 Antibiotics) of breath Social History Smoking Status: Former smoker ROS ROS ED ROS Narrative Constitutional: No fever, no chills. HEENT: No sore throat. No neck pain. No loss of vision. No rhinorrhea. Cardiovascular: Positive chest pain. No palpitations. No pedal edema. Respiratory: No cough, mild shortness of breath. Abdominal: No abdominal pain. No nausea. No vomiting. Genitourinary: No dysuria. No hematuria. Musculoskeletal: No myalgias. No arthralgias. Left posterior scapular pain Neurologic: No headaches. No dizziness. No lightheadedness. Skin: No rash. No change in color. Psychiatric: No depression. No anxiety. EXAM Physical Exam Narrative Exam Narrative: Afebrile. Vital signs noted. HEENT: Normocephalic. Atraumatic. PERRL, EOMI. Neck soft and supple. No point tenderness or step off. Cardiovascular: Regular rate and rhythm. No murmurs, rubs, or gallops appreciated. Respiratory: No tachypnea. Lungs clear to auscultation bilaterally. Gastrointestinal: Abdomen soft, nontender, with normoactive bowel sounds. No rebound or guarding. Neurological: Awake. Alert. Nonfocal, nonlateralizing. Skin: No rash. Normal color. No pallor. Musculoskeletal: No pedal edema. Full range of motion extremities. Reproducible left scapular pain on body and left rhomboid area. Full range of motion left upper extremity. Reproducible pain with movement of arm. Const Vital Signs: 03/13/21 11:29 03/13/21 11:38 03/13/21 12:29 Temperature 96.7 F L Temperature Source Temporal Pulse Rate 64 57 L Respiratory Rate 18 15 Respiratory Effort Short of Breath Blood Pressure 134/73 H Blood Pressure Mean 93 Pulse Ox 97 97 Oxygen Delivery Method Room Air Room Air Room Air 03/13/21 14:05 03/13/21 15:15 Temperature Temperature Source Pulse Rate 54 L 56 L Respiratory Rate 14 14 Respiratory Effort Blood Pressure 143/75 H 141/67 H Blood Pressure Mean 97 91 Pulse Ox 100 97 Oxygen Delivery Method Room Air Room Air MDM MDM MDM Narrative Medical decision making narrative: Comprehensive work-up was pursued. I will obtain basic laboratory work including troponins because she states she felt dizzy and lightheaded at x2. I will obtain a CTA to look for pulmonary embolism. I do not feel that she is having a dissection. Her pain is reproducible. I do feel it may be more musculoskeletal in nature. Her EKG demonstrates sinus bradycardia at 59 bpm without ectopy or acute ST changes, no significant change from August 2018. She has slightly elevated white count of 14.8 which I think is nonspecific, hemoglobin stable at 15.5. Platelet count elevated at 740. Basic metabolic panel is grossly unremarkable. Initial high-sensitivity troponin normal at 6, repeat also normal at 6. I do feel that she has been ruled out by biomarkers. Chest CTA shows emphysematous changes. No pulmonary embolism. There is an 8.1 mm x 4.5 mm noncalcified nodule in the posterior medial segment of the right upper lobe. She thought that she already had a pulmonary nodule. Regardless, she was told to follow-up with her primary care physician regarding this. At this point in time, I do feel she can be discharged safely home. She will take [id number] medications as needed. Return instructions were reviewed. Disposition is discharged home in stable condition. Lab Data Attestation: I reviewed the patient's lab results. Labs: Laboratory Results - last 24 hr 03/13/21 03/13/21 03/13/21 11:45 11:45 14:12 WBC 14.8 H RBC 5.08 Hgb 15.5 H Hct 50.0 H MCV 98.4 MCH 30.5 MCHC 31.0 L RDW Std Deviation 50.4 H RDW Coeff of Janett 13.8 Plt Count 740 H MPV 9.1 Immature Gran % (Auto) 1.200 H Neut % (Auto) 81.0 H Lymph % (Auto) 7.2 L [place] % (Auto) 4.3 Eos % (Auto) 4.5 Baso % (Auto) 1.8 H Absolute Neuts (auto) 12.0 H Absolute Lymphs (auto) 1.06 Nucleated RBC % 0 Sodium 136 Potassium 3.9 Chloride 104 Carbon Dioxide 30.0 Anion Gap 2 L BUN 18 Creatinine 0.92 Estim Creat Clear Calc 44.13 Est GFR (MDRD) Af Amer 75 Est GFR (MDRD) Non-Af 62 BUN/Creatinine Ratio 19.6 Glucose 85 Calcium 8.8 Troponin I High Sens 6 6 Radiography Diagnostic Testing: Clinical Impression(s) from Imaging Studies Chest CTA 03/13/21 12:03 IMPRESSION: No evidence of a pulmonary embolism. Emphysematous changes. There is a new 8.1 mm x 4.5 mm noncalcified nodule in the posterior medial segment of the right upper lobe abutting the right major fissure. Correlation with a PET scan is recommended. Electronically Signed: Pancho Walker MD at 13:44 EST , Discharge Plan Triage Chief Complaint: Shortness of Breath ED Provider: Say Perales Dx/Rx/DC Orders Clinical Impression: Pain of left scapula, Rhomboid muscle pain, Chest pain, Thoracic back pain, Incidental pulmonary nodule, greater than or equal to 8mm Instructions: Medicine for Pain, ED Back Pain (Acute or Chronic), ED Chest Pain, Uncertain Cause Prescriptions: No Action fluticasone propion-salmeterol [Advair HFA] 115-21M inhaler 2 inhaler inhalation BID RF: 0 aspirin 81 MG tablet,chewable 81 mg PO BID RF: 0 albuterol sulfate 1 INHALER inhaler 1 - 2 puff inhalation Q6H PRN PRN (Reason: breathing) RF: 0 cholecalciferol (vitamin D3) 1,000 UNIT tablet 1,000 unit PO DAILY RF: 0 Primary Care Provider: Milady Vizcarra Referrals: Milady Vizcarra MD [Primary Care Provider] - 3-5 Days if not improving Disposition Disposition: Home, Self Care
[2021-03-13 12:12] LABS: Absolute Lymphocyte Count 1.06 X10^3/uL (0.83-4.51); Basophil# 0.27 X10^3/uL; Basophil% 1.8 % (0-1); Eosinophil# 0.67 X10^3/uL; Eosinophils% 4.5 % (0-5); Hemoglobin 15.5 g/dL (12.0-15.0); Lymphocyte # 1.06 X10^3/ul (0.83-4.51); Lymphocyte % 7.2 % (19-41); Mean Corpuscular Hgb 30.5 pg (27.0-32.0); Mean Corpuscular Volume 98.4 fL (81-99); Mean Platelet Vol. 9.1 fl (6.2-12.0); Monocyte# 0.63 X10^3/uL; Monocyte% 4.3 % (0-10); NRBC Flagged by Analyzer 0 % (0-5); Neutrophil # 11.97 X10^3/uL (2.7-7.7); Platelet Count 740 K/mm3 (150-450); RBC Distribution Width CV 13.8 % (11.6-14.6); RBC Distribution Width SD 50.4 fl (35.1-43.9); Red Blood Count 5.08 M/mm3 (4.2-5.4); White Blood Count 14.8 K/mm3 (4.4-11.0)
[2021-03-13 12:29] VITALS: PULSE 57; RESP 15; O2SAT 97
[2021-03-13] MEDS: Aspirin 81 MG TAB.CHEW 324 MG PO (12:36)
[2021-03-13 12:48] LABS: Anion Gap 2 (5-15); BUN 18 mg/dL (7-18); BUN/Creat Ratio 19.6 RATIO (10-20); Calcium,Total 8.8 mg/dL (8.5-10.1); Chloride 104 mmol/L (98-107); Creatinine, Serum 0.92 mg/dL (0.55-1.02); EST Glomerular Filtration Rate 62 mL/min (>60); Est Glom Filt Rate - Afr Amer 75 mL/min (>60); Estimated Creatinine Clearance 44.13 ml/min; Glucose 85 mg/dL (74-106); Potassium 3.9 mmol/L (3.5-5.1); Sodium Level 136 mmol/L (136-145); Troponin-I HS 6 pg/mL (3.0-54.0)
[2021-03-13 14:05] VITALS: BP 143/75; PULSE 54; RESP 14; O2SAT 100
[2021-03-13 14:41] LABS: Troponin-I HS 6 pg/mL (3.0-54.0)
[2021-03-13 15:15] VITALS: BP 141/67; PULSE 56; RESP 14; O2SAT 97
[2021-03-13 15:30] VITALS: BP 141/67; PULSE 54; RESP 15; O2SAT 99
== END 2021-03-13 15:30 | disposition home or self-care (01) ==
PROVIDERS: Emergency Provider Emergency Medicine; PCP Internal Medicine; Visit Provider Emergency Medicine
DX: M54.12 Radiculopathy, cervical region (principal); M54.6 Pain in thoracic spine; R91.1 Solitary pulmonary nodule; Z86.718 Personal history of other venous thrombosis and embolism; Z79.82 Long term (current) use of aspirin; R42 Dizziness and giddiness; Z87.891 Personal history of nicotine dependence; J45.909 Unspecified asthma, uncomplicated; M51.36 Other intervertebral disc degeneration, lumbar region
CPT/HCPCS: 71275; 80048; 84484; 85025; 93005; 99283; Q9967; A4216

== ENCOUNTER 2021-10-13 06:15 | Emergency (ER) | payer MEDICARE, SELFPAY ==
[2021-10-13 06:16] VITALS: BP 142/77; PULSE 65; RESP 15; TEMP 36.4; O2SAT 98; BMI 23.0
[2021-10-13 07:10] VITALS: BP 140/66; BP 142/95; BP 156/85; PULSE 65; PULSE 72; PULSE 81
--- NOTE | 2021-10-13 07:19 | EDS_ITS ---
HPI History of Present Illness Chief Complaint: Nausea/Vomiting Narrative Narrative: Patient is an 81-year-old female with past medical history of polycythemia vera. She states she typically struggles with constipation. She reports that she took a suppository yesterday secondary to this. She states around 2 AM she began with multiple bouts of loose stool/diarrhea as well as bouts of nausea and vomiting. She states he got to the point where she felt lightheaded where she thought she might pass out. 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 Patient denies any known sick contact. She denies any fevers or chills or abdominal pain with this. She does states she was recently placed on antibiotics but today would be the last day of the prescription and she states that there has been no issues with diarrhea while she has been on it [facility] Medical History Asthma DVT (deep venous thrombosis) Home Medications fluticasone propionate 115 mcg-salmeterol 21 mcg/actuation HFA inhaler (Advair HFA) 2 inhaler inhalation BID asthma 03/04/17 [History Last Taken Unknown] aspirin 81 mg chewable tablet 81 mg PO DAILY 08/16/18 [History Last Taken 10/11/18] albuterol sulfate 90 mcg/actuation aerosol inhaler 1 - 2 puff inhalation Q6H PRN PRN breathing 10/11/18 [History Last Taken Unknown] cholecalciferol (vitamin D3) 25 mcg (1,000 unit) tablet 1,000 unit PO DAILY suplement 10/11/18 [History Last Taken Unknown] Allergy/AdvReac Type Severity Reaction Status Date / Time acetaminophen [From Tylenol] AdvReac Other Verified 10/13/21 06:23 hydrocodone AdvReac Nausea/Vom/ Verified 10/13/21 06:23 Diarrhea metronidazole AdvReac Other Verified 10/13/21 06:23 Sulfa (Sulfonamide AdvReac Shortness Verified 10/13/21 06:23 Antibiotics) of breath Social History Smoking Status: Former smoker ROS ROS ED Constitutional Constitutional ED: Denies chills or fever(s) ENT ENT ED: Denies sore throat Cardiovascular Cardiovascular: Denies chest pain, palpitations or racing heartbeat Respiratory/Chest Respiratory/Chest: Denies cough or dyspnea Gastrointestinal Gastrointestinal: Reports diarrhea, nausea and vomiting; Denies abdominal pain Genitourinary Genitourinary ED: Denies dysuria Musculoskeletal Musculoskeletal: Denies myalgias Integumentary Denies rash Neurologic Neurologic: Reports other Details: Positive lightheadedness ; Denies headache(s) Psychiatric Psychiatric: Reports anxiety Hematologic/Lymphatic Hematologic/Lymphatic: Denies easy bleeding or easy bruising EXAM Physical Exam Const Vital Signs: 10/13/21 06:16 10/13/21 07:10 Temperature 97.5 F L Temperature Source Temporal Pulse Rate 65 Pulse Rate [Lying] 65 Pulse Rate [Sitting (for 1 minute prior to obtaining)] 72 Pulse Rate [Standing (for 1 minute prior to obtaining)] 81 Respiratory Rate 15 Blood Pressure 142/77 H Blood Pressure [Lying] 140/66 H Blood Pressure [Sitting (for 1 minute prior to obtaining)] 156/85 H Blood Pressure [Standing (for 1 minute prior to obtaining)] 142/95 H Blood Pressure Mean 98 Blood Pressure Mean [Lying] 90 Blood Pressure Mean [Sitting (for 1 minute prior to obtaining)] 108 Blood Pressure Mean [Standing (for 1 minute prior to obtaining)] 110 Pulse Ox 98 Oxygen Delivery Method Room Air Positive well nourished and well developed General Appearance ED: well developed HEENT Reports dry mucous membranes Mouth ED: Yes dry mucous membranes Mouth: dry mucous membranes Eyes PERRL and EOMs intact bilaterally General Eye ED: Negative for scleral icterus Neck supple Resp normal respiratory effort and clear to auscultation bilaterally Cardio regular rate and regular rhythm Rate: other Other Details: Radial pulses are plus 2 out of 4 bilaterally are equal and symmetric GI non-tender and non-distended GI Narrative: Abdomen is soft nontender nondistended with hyperactive bowel sounds. No voluntary guarding or rigidity no pulsatile mass. No increased tympany. Patient has a reducible ventral hernia noted Auscultation: hyperactive bowel sounds Palpation: soft Narrative: Rectal exam displays nonbleeding nonthrombosed external hemorrhoids without secondary/surrounding infectious process change. Extremity normal to inspection Neuro oriented x3 and CN's II-XII intact bilaterally Sensorium / Orientation: alert Psych Psych Narrative: Nervous/anxious affect Skin no rashes or lesions noted Skin Narrative: Skin turgor is increased General Skin Exam: Negative for jaundice MDM MDM MDM Narrative Medical decision making narrative: Patient presented to the ER with stable vitals. Her history and exam is consistent with mild dehydration. Secondary to his basic blood work will be obtained to rule out acute kidney injury or electrolyte derangement. Orthostatic vital signs were obtained and patient did have a drop in her systolic blood pressure from sitting to standing but it was only by about 12 points which is technically negative. At this time patient will be given 1 L of IV fluids secondary to her dehydration and dizziness symptoms. I do not feel there is a need for CT scan of her stomach as I do not have any pain with palpation or obvious changes to suggest incarcerated hernia or bowel blockage. In this time I feel that if patient's symptoms improve with hydration and labs revealed no clinically significant changes the patient should be safe for discharge Patient will be signed out to Dr. Carlson pending completion of her workup Lab Data Labs: Laboratory Results - last 24 hr 10/13/21 06:25 WBC 19.7 H RBC 4.94 Hgb 14.9 Hct 47.0 MCV 95.1 MCH 30.2 MCHC 31.7 L RDW Std Deviation 51.2 H RDW Coeff of Janett 14.7 H Plt Count 681 H MPV 9.3 Immature Gran % (Auto) 1.000 H Neut % (Auto) 89.1 H Lymph % (Auto) 3.2 L [place] % (Auto) 3.3 Eos % (Auto) 2.3 Baso % (Auto) 1.1 H Absolute Neuts (auto) 17.6 H Absolute Lymphs (auto) 0.63 L Nucleated RBC % 0 Discharge Plan Triage Chief Complaint: Nausea/Vomiting ED Provider: Landon Suazo Dx/Rx/DC Orders Clinical Impression: Nausea vomiting and diarrhea, Dehydration, Orthostatic dizziness Prescriptions: No Action Advair HFA 115-21M inhaler 2 inhaler inhalation BID Label Comments: aspirin 81 MG tablet,chewable 81 mg PO DAILY Label Comments: stopped for surgery per dr lebron albuterol sulfate 1 INHALER inhaler 1 - 2 puff inhalation Q6H PRN PRN (Reason: breathing) cholecalciferol (vitamin D3) 1,000 UNIT tablet 1,000 unit PO DAILY Primary Care Provider: Milady Vizcarra Referrals: Milady Vizcarra MD [Primary Care Provider] -
[2021-10-13 07:20] LABS: Absolute Lymphocyte Count 0.63 X10^3/uL (0.83-4.51); Absolute Neutrophil Count 17.6 X10^3/uL (2.0-7.7); Basophil# 0.21 X10^3/uL; Basophil% 1.1 % (0-1); Eosinophil# 0.46 X10^3/uL; Eosinophils% 2.3 % (0-5); Hemoglobin 14.9 g/dL (12.0-15.0); Lymphocyte # 0.63 X10^3/ul (0.83-4.51); Lymphocyte % 3.2 % (19-41); Mean Corp Hgb Conc 31.7 g/dL (32-36); Mean Corpuscular Hgb 30.2 pg (27.0-32.0); Mean Corpuscular Volume 95.1 fL (81-99); Mean Platelet Vol. 9.3 fl (6.2-12.0); Monocyte# 0.65 X10^3/uL; Monocyte% 3.3 % (0-10); NRBC Flagged by Analyzer 0 % (0-5); Neutrophil # 17.59 X10^3/uL (2.7-7.7); Neutrophil % 89.1 % (47-70); Platelet Count 681 K/mm3 (150-450); RBC Distribution Width CV 14.7 % (11.6-14.6); RBC Distribution Width SD 51.2 fl (35.1-43.9); Red Blood Count 4.94 M/mm3 (4.2-5.4); White Blood Count 19.7 K/mm3 (4.4-11.0)
[2021-10-13] MEDS: 0.9% Normal Saline 1,000 ML 999 ML IV (07:26)
[2021-10-13] MEDS: Ondansetron 4 MG/2 ML Vial IV (07:27)
[2021-10-13] MEDS: Orphenadrine 60 MG/2 ML Ampul IV (07:27)
--- NOTE | 2021-10-13 07:27 | CT_ITS ---
STUDY: CT ABDOMEN AND PELVIS WITH CONTRAST REASON FOR EXAM: Female, 81 years old. Abdominal pain and constipation. Elevated white cell count. RADIATION DOSAGE (If Supplied By Facility): CTDIvol = ( 11.5 ) mGy, DLP = ( 594.06 ) mGycm TECHNIQUE: Transaxial images were obtained from the dome of the diaphragm to the symphysis pubis without oral contrast. IV 100mL Isovue-370 was administered. Sagittal and coronal images were reconstructed. Individualized dose optimization techniques were used for this CT. COMPARISON: None. FINDINGS: Minimal scarring at the lung bases. The visualized portions of the heart are within normal limits. Hepatomegaly. Normal gallbladder and extrahepatic biliary system. Normal spleen. Normal pancreas. Normal bilateral adrenal glands. There is a 1.6 cm cyst in the upper lateral aspect of the right kidney. There is a 1.1 cm cyst in the medial upper pole of the left kidney. There is a small hiatal hernia. Normal small intestine. Moderate amount of fecal material is seen in the colon. Diffuse sigmoid diverticulosis. The appendix is visualized and appears normal. There is diffuse atherosclerotic calcification of the abdominal aorta and its major visceral branches, without a demonstrated aneurysm. Normal inferior vena cava. Normal retroperitoneum. Normal urinary bladder. There is an enlarged heterogeneous fibroid uterus. Correlation with ultrasound of the pelvis recommended for assessment of the endometrium. Normal abdominal wall. There are diffuse degenerative changes of the visualized lumbar spine. CT/Abdomen/Pelvis W IV Cont ONLY IMPRESSION: Hepatomegaly. Small bilateral renal cysts. Small hiatal hernia. Enlarged heterogeneous fibroid uterus. Correlation with ultrasound is recommended. Electronically Signed: Pancho Walker MD at 8:57 EDT ,
[2021-10-13 07:55] LABS: Bacteria 0 SEEN /hpf (None Seen); Mucous, Urine 0 SEEN /hpf (<or=2+); Red Blood Cells-Urine 0 SEEN /hpf (0-5); Squamous Epithelial Cells - UA 0 SEEN /hpf (5-10)
[2021-10-13 07:57] LABS: AST(SGOT) 16 U/L (15-37); Alanine Aminotransfer ALT/SGPT 17 U/L (13-56); Albumin, Serum 3.4 g/dL (3.2-5.0); Alkaline Phosphatase 100 U/L (45-117); Anion Gap 9 (5-15); BUN 28 mg/dL (7-18); BUN/Creat Ratio 28.1 RATIO (10-20); Bilirubin, Direct 0.35 mg/dL (0.00-0.30); Calcium,Total 8.7 mg/dL (8.5-10.1); Chloride 100 mmol/L (98-107); EST Glomerular Filtration Rate 57 mL/min (>60); Est Glom Filt Rate - Afr Amer 68 mL/min (>60); Globulin 4.3 g/dL (2.2-4.2); Glucose 102 mg/dL (74-106); Lipase 217 U/L (73-393); Magnesium 2.3 mg/dL (1.6-2.6); Potassium 4.2 mmol/L (3.5-5.1); Protein, Total 7.7 g/dL (6.4-8.2); Sodium Level 136 mmol/L (136-145)
[2021-10-13 08:08] LABS: Color, Urine Yellow (Yellow); Glucose, Dipstick Normal (Normal); Ketone-Dipstick 15 mg/dl (Negative); Leukocyte Esterase-Dipstick 25 /ul (Negative); Nitrite-Dipstick Negative (Negative); Occult Blood-Urine Negative /ul (Negative); Protein-Dipstick 15 mg/dl (Negative); Specific Gravity, Urine 1.015 (1.002-1.030); Urine Bilirubin Dipstick Negative (Negative); Urine Clarity Clear (Clear); Urine Urobilinogen 1 mg/dl (Normal)
[2021-10-13 08:35] LABS: White Blood Cells 0-5 SEEN /hpf (0-5)
[2021-10-13 09:47] VITALS: BP 114/80; PULSE 66; RESP 16; O2SAT 97
== END 2021-10-13 09:48 | disposition home or self-care (01) ==
PROVIDERS: Emergency Provider Emergency Medicine; PCP Internal Medicine; Visit Provider Emergency Medicine
DX: E86.0 Dehydration (principal); D45 Polycythemia vera; J45.909 Unspecified asthma, uncomplicated; Z86.718 Personal history of other venous thrombosis and embolism; Z79.82 Long term (current) use of aspirin; Z87.891 Personal history of nicotine dependence; R11.2 Nausea with vomiting, unspecified; R42 Dizziness and giddiness; N28.1 Cyst of kidney, acquired; K44.9 Diaphragmatic hernia without obstruction or gangrene; D25.9 Leiomyoma of uterus, unspecified; R19.7 Diarrhea, unspecified
CPT/HCPCS: 74177; 80048; 80076; 81001; 83690; 83735; 85025; 96361; 96374; 96375; 99284; J7030; Q9967; A4216; J2405

== ENCOUNTER 2021-11-26 11:18 | Emergency (ER) | payer MEDICARE, SELFPAY ==
--- NOTE | 2021-11-26 11:19 | ED.RN ---
PT IS TAKING CARE OF WHO IS ON HOSPICE. PT IS TEARFUL AND TIRED.
[2021-11-26 11:20] VITALS: BP 152/78; PULSE 78; RESP 14; TEMP 36.6; O2SAT 97; BMI 21.7
== END 2021-11-26 12:27 | disposition left against medical advice (07) ==
LOC: ED 12:26
PROVIDERS: PCP Internal Medicine
DX: Z53.21 Procedure and treatment not carried out due to patient leaving prior to being seen by health care provider (principal)

== ENCOUNTER 2021-11-27 01:19 | Inpatient (IN) | payer MEDICARE, SELFPAY ==
[2021-11-27] VITALS (24 sets, daily range): BP systolic 120–168; BP diastolic 68–85; PULSE 60–86; RESP 16–20; TEMP 36.2–37.1; O2SAT 90–100; BMI 23.1; BMI 21.8
--- NOTE | 2021-11-27 01:39 | EKG12_ITS ---
Test Reason : DYSRHYTHMIA Blood Pressure : / mmHG Vent. Rate : 083 BPM Atrial Rate : 083 BPM P-R Int : 146 ms QRS Dur : 074 ms QT Int : 356 ms P-R-T Axes : 073 055 060 degrees QTc Int : 418 ms Normal sinus rhythm Normal ECG Confirmed by KEATON RAMOS, SAJI ([id number]), publication editor EUSEBIO MINAYA ([id number]) on 11/30/2021 10:11:10 AM Referred By: YANNA Confirmed By:CHRIS PUGH MD
--- NOTE | 2021-11-27 01:41 | ED.VIS.DYS ---
HPI History of Present Illness Chief Complaint: Shortness of Breath Informant: patient Onset/Context/Timing Onset: Yesterday Timing: Intermittent Current Severity: Mild Maximum Severity: Moderate Narrative Narrative: Patient presents secondary to shortness of breath with exertion. She states yesterday afternoon she developed shortness of breath. She used her inhaler and came to the emergency room. She was seen in triage but there was no bed available to be seen by the physician. She states that the time the bed opened up she was feeling better and chose to go home. While at home she felt short of breath again with any exertion. She states her oxygen level was 86% on room air. EMS was called and gave her a DuoNeb treatment and transport her. She complains of pain across her back just below her shoulder blades. That has been present since yesterday afternoon. She denies anterior chest pain. She denies cough or congestion. No fever. [facility] Medical History Asthma DVT (deep venous thrombosis) Home Medications fluticasone propionate 115 mcg-salmeterol 21 mcg/actuation HFA inhaler (Advair HFA) 2 inhaler inhalation BID asthma 03/04/17 [History Last Taken Unknown] aspirin 81 mg chewable tablet 81 mg PO DAILY 08/16/18 [History Last Taken 10/11/18] albuterol sulfate 90 mcg/actuation aerosol inhaler 1 - 2 puff inhalation Q6H PRN PRN breathing 10/11/18 [History Last Taken Unknown] cholecalciferol (vitamin D3) 25 mcg (1,000 unit) tablet 1,000 unit PO DAILY suplement 10/11/18 [History Last Taken Unknown] Allergy/AdvReac Type Severity Reaction Status Date / Time acetaminophen [From Tylenol] AdvReac Other Verified 11/27/21 01:20 hydrocodone AdvReac Nausea/Vom/ Verified 11/27/21 01:20 Diarrhea metronidazole AdvReac Other Verified 11/27/21 01:20 Sulfa (Sulfonamide AdvReac Shortness Verified 11/27/21 01:20 Antibiotics) of breath Social History Smoking Status: Former smoker ROS ROS ED Constitutional Constitutional ED: Denies chills or fever(s) Eyes Eyes: Denies change in vision or discharge from eye(s) ENT ENT ED: Denies discharge from eye(s), rhinorrhea or sore throat Cardiovascular Cardiovascular: Denies chest pain or palpitations Respiratory/Chest Respiratory/Chest: Reports dyspnea; Denies cough Gastrointestinal Gastrointestinal: Denies abdominal pain, diarrhea, nausea or vomiting Genitourinary Genitourinary ED: Denies dysuria Musculoskeletal Musculoskeletal: Reports back pain; Denies extremity pain Integumentary Denies Abrasions or rash Neurologic Neurologic: Denies headache(s) or weakness Psychiatric Psychiatric: Denies anxiety or depression Allergic/Immunologic Allergic/Immunologic ED: Denies lip swelling or urticaria EXAM Physical Exam Const Vital Signs: 11/27/21 01:20 11/27/21 01:23 11/27/21 01:25 Temperature 97.8 F 97.8 F Temperature Source Temporal Temporal Pulse Rate 60 60 Respiratory Rate 19 H 19 H Respiratory Effort Short of Breath Respiratory Depth Normal Respiratory Pattern Tachypnea Blood Pressure 168/85 H Blood Pressure Mean 112 Pulse Ox 95 95 Oxygen Delivery Method Room Air Room Air Room Air Positive well nourished and well developed General Appearance ED: well developed HEENT Reports normocephalic and head/scalp atraumatic Eyes PERRL and EOMs intact bilaterally Neck supple Chest Wall inspection of chest normal and palpation of chest normal Resp normal respiratory effort and clear to auscultation bilaterally Cardio regular rate and regular rhythm GI normal to inspection, nondistended, normoactive bowel sounds Palpation: soft Back/Spine no CVA tenderness Extremity normal to inspection Neuro oriented x3 and no sensory deficits noted Sensorium / Orientation: alert Motor Exam: strength 5/5 throughout Psych mental status grossly normal Skin no rashes or lesions noted MDM MDM MDM Narrative Medical decision making narrative: Patient given aspirin while awaiting work-up. EKG, chest x-ray, lab work obtained. Lab Data Attestation: I reviewed the patient's lab results. Labs: Laboratory Results - last 24 hr 11/27/21 11/27/21 11/27/21 01:35 01:35 01:35 WBC 11.2 H RBC 4.10 L Hgb 12.9 Hct 40.2 MCV 98.0 MCH 31.5 MCHC 32.1 RDW Std Deviation 62.2 H RDW Coeff of Janett 17.4 H Plt Count 363 MPV 9.2 Immature Gran % (Auto) 1.500 H Neut % (Auto) 84.2 H Lymph % (Auto) 5.7 L [place] % (Auto) 4.7 Eos % (Auto) 3.3 Baso % (Auto) 0.6 Absolute Neuts (auto) 9.4 H Absolute Lymphs (auto) 0.64 L Nucleated RBC % 0 D-Dimer Quant (PE/DVT) 8.97 H* Sodium 136 Potassium 3.6 Chloride 102 Carbon Dioxide 30.0 Anion Gap 4 L BUN 13 Creatinine 0.86 Estim Creat Clear Calc 46.40 Est GFR (MDRD) Af Amer 81 Est GFR (MDRD) Non-Af 67 BUN/Creatinine Ratio 15.1 Glucose 115 H Calcium 8.8 Troponin I High Sens 477 H* Radiography Chest X-Ray - ED: 1 View, Read by ED Physician and Chronic Changes Diagnostic Testing: Clinical Impression(s) from Imaging Studies Chest X-Ray 11/27/21 01:55 IMPRESSION: No acute disease. Electronically Signed: Landon Johnson MD at 2:30 EDT , EKG Initial EKG: Attestation: I personally reviewed and interpreted this EKG as follows: Interpretation: Sinus Rhythm (Sinus 83 with no acute ischemia.) Treatment and Re-Evaluation Narrative: EKG per my interpretation shows no acute ischemia. Chest x-ray reveals chronic changes. CBC reveals a mildly elevated white count of 11.2. 84% neutrophils noted. D-dimer is elevated at 8.97. Chemistry studies unremarkable but troponin is elevated at 477. I do have concern for pulmonary embolism given the patient's history and presentation. She is sent for CTA of the chest. My interpretation of the CTA reveals bilateral PEs. Patient states that she had severe back pain on Xarelto in the past and while on Coumadin her INR was too high and she had to be taken off the medication. In light of this she will be started on a heparin drip at this time while we are awaiting further cardiac evaluation and can safely transition her to another anticoagulant. Patient did drop her oxygen saturations to 85% on room air on her way back from CAT scan. She is currently on 2 L nasal cannula and satting in the high 90s. Discharge Plan Triage Chief Complaint: Shortness of Breath ED Provider: Nena Schmid Dx/Rx/DC Orders Clinical Impression: Pulmonary emboli Prescriptions: No Action Advair HFA 115-21M inhaler 2 inhaler inhalation BID Label Comments: aspirin 81 MG tablet,chewable 81 mg PO DAILY Label Comments: stopped for surgery per dr lebron albuterol sulfate 1 INHALER inhaler 1 - 2 puff inhalation Q6H PRN PRN (Reason: breathing) cholecalciferol (vitamin D3) 1,000 UNIT tablet 1,000 unit PO DAILY Primary Care Provider: Milady Vizcarra Referrals: Milady Vizcarra MD [Primary Care Provider] - Disposition Disposition: Acute Care Hospital [facility]
[2021-11-27] MEDS: Aspirin 81 MG TAB.CHEW 324 MG PO (01:44)
[2021-11-27 01:47] LABS: Absolute Lymphocyte Count 0.64 X10^3/uL (0.83-4.51); Absolute Neutrophil Count 9.4 X10^3/uL (2.0-7.7); Basophil# 0.07 X10^3/uL; Basophil% 0.6 % (0-1); Eosinophil# 0.37 X10^3/uL; Eosinophils% 3.3 % (0-5); Hematocrit 40.2 % (37-47); Hemoglobin 12.9 g/dL (12.0-15.0); Lymphocyte # 0.64 X10^3/ul (0.83-4.51); Lymphocyte % 5.7 % (19-41); Mean Corp Hgb Conc 32.1 g/dL (32-36); Mean Corpuscular Hgb 31.5 pg (27.0-32.0); Mean Platelet Vol. 9.2 fl (6.2-12.0); Monocyte# 0.52 X10^3/uL; Monocyte% 4.7 % (0-10); NRBC Flagged by Analyzer 0 % (0-5); Neutrophil % 84.2 % (47-70); Platelet Count 363 K/mm3 (150-450); RBC Distribution Width CV 17.4 % (11.6-14.6); RBC Distribution Width SD 62.2 fl (35.1-43.9); White Blood Count 11.2 K/mm3 (4.4-11.0)
--- NOTE | 2021-11-27 01:55 | RAD_ITS ---
EXAM: XR CHEST, 1 VIEW CLINICAL INDICATION: sob TECHNIQUE: Frontal view of the chest. This report was created using Let report generation technology. COMPARISON: August 16, 2018 FINDINGS: LUNGS AND PLEURAL SPACES: Unremarkable. No consolidation or edema. No pneumothorax. No effusion. HEART: Unremarkable. Cardiac silhouette not enlarged. MEDIASTINUM: Central airways and mediastinal contour are unremarkable. BONES/JOINTS: Degenerative changes of the spine and the acromioclavicular joints. SOFT TISSUES: Unremarkable. LYMPH NODES: Dense nodules involving the left hilar region. Consider calcified lymph nodes associated with old granulomatous disease. RAD/Chest 1 View (Portable) IMPRESSION: No acute disease. Electronically Signed: Landon Johnson MD at 2:30 EDT ,
[2021-11-27 02:06] LABS: Anion Gap 4 (5-15); BUN 13 mg/dL (7-18); BUN/Creat Ratio 15.1 RATIO (10-20); Calcium,Total 8.8 mg/dL (8.5-10.1); Chloride 102 mmol/L (98-107); Creatinine, Serum 0.86 mg/dL (0.55-1.02); D-Dimer Quantitative (DVT/PE) 8.97 FEU/ug/m (0.27-0.49); EST Glomerular Filtration Rate 67 mL/min (>60); Est Glom Filt Rate - Afr Amer 81 mL/min (>60); Glucose 115 mg/dL (74-106); Potassium 3.6 mmol/L (3.5-5.1); Sodium Level 136 mmol/L (136-145); Troponin-I HS (w/2H Reflex) 477 pg/mL (3.0-54.0)
--- NOTE | 2021-11-27 02:09 | CT_ITS ---
EXAM: CT ANGIOGRAPHY CHEST WITHOUT AND WITH INTRAVENOUS CONTRAST CLINICAL INDICATION: pulmonary embolism TECHNIQUE: Helically acquired angiography images were obtained of the chest without and with intravenous contrast. CTDIvol = ( 8.47 ) mGy, DLP = ( 190.63 ) mGycm This CT exam was performed using one or more of the following dose reduction techniques: automated exposure control, adjustment of the mA and/or kV according to patient size, and/or use of iterative reconstruction technique. This report was created using [employer] report generation technology. MIP reconstructed images were created and reviewed. CONTRAST: IV 75mL Isovue-370 COMPARISON: None. FINDINGS: PULMONARY ARTERIES: Positive for PE involving all lobes (central to peripheral branches) with no saddle embolism. Normal in caliber. AORTA: No aortic aneurysm or dissection. GREAT VESSELS OF AORTIC ARCH: Unremarkable. Normal in caliber. No evidence of dissection. LUNGS AND PLEURAL SPACES: No pulmonary infarct. No pleural effusion or pneumothorax. No mass. HEART: Dilated cardiac chambers suggest right heart strain. Multivessel calcific coronary arteriosclerosis. No pericardial effusion. MEDIASTINUM: No mediastinal or hilar adenopathy. Esophagus is unremarkable. THYROID: Thyroid, esophagus, trachea is unremarkable. BONES/JOINTS: No suspicious lytic or sclerotic lesions of bone. OTHER FINDINGS: Upper abdomen is unremarkable. Atypical infectious centrilobular small nodules are identified involving all lobes bilaterally. CT/CTA Chest W/WO Contrast IMPRESSION: 1. Bilateral PE with right heart strain suggested. 2. Bilateral multilobar atypical infection. Dr. Nena Schmid was notified of the findings at 11:58 PM [place] time 11/26/21. N.B. : The above Results were Read Back by Landon Johnson MD to Nena Schmid MD, and understanding confirmed on 11/27/2021 02:58:26 (ET). Electronically Signed: Landon Johnson MD at 3:00 EDT ,
--- NOTE | 2021-11-27 02:51 | PCM.HP.STD ---
HPI - General General Date of Admission: 11/27/21 Date of Service: 11/27/21 Chief Complaint: Dyspnea, hypoxia. HPI Narrative The patient is an 81 y/o F w/ PMHx: Asthma, Hx VTE (DVT, PE), Former tobacco use, ? Polycythemia vera who presents to the [facility] ED on 11/27/21 with history of onset dyspnea the day prior, worse with exertion with self administration of her rescue inhaler at home without marked improvement with transition to the ED for evaluation however at that time the wait was prolonged prompting her to return to her home with some mild improvement however she again worsened and noted that her oxygen level was 86% on room air prompting EMS call with DuoNeb therapy and transition to the ED for evaluation with now onset of discomfort across her back and below her shoulder blades. Patient also notes history approximately 1 week to 1.5 weeks prior of URI type symptoms with associated fever, fatigue, cough, congestion, rhinorrhea with significant fatigue and malaise although this seemed to improve and dequan. She does note that she had 1 home test that was negative for COVID but had no other testing performed. Patient was reticent to present to the ED for evaluation as her is currently at home on hospice and she is his primary caregiver. Work-up in the ED included T97.8, heart rate 60, BP 160/85, respiratory rate 19, 95% on room air, CBC with WBC 11.2, hemoglobin 12.9, platelets 363 with left shift and lymphopenia, D-dimer 8.97, BMP with glucose 115, troponin 477, chest x-ray with no acute cardiopulmonary findings, CTPA with bilateral pulmonary emboli with evidence of right heart strain, bilateral multilobar atypical infection, EKG with sinus rhythm with no acute evidence of ischemia. Patient historically previously had been on Xarelto but had significant back discomfort while on this medication and she notes that when she was transition to Coumadin therapy her INR was frequently markedly elevated and she eventually had to be taken off of this medication. In the ED given patient history she was started on a heparin drip with planned potential consideration of alternate NOAC. In the emergency room of note she did have oxygen saturations dropped down to 85% on room air when she was being transported back from CT scan transition eventually to 2 L nasal cannula with improvement into the 90s. Given CTPA findings as well as PE with no recent prolonged travel requested RT obtain [facility] Medical History (Updated 11/27/21 @ 03:[address] Rebecca Woods MD) Asthma DVT (deep venous thrombosis) Former tobacco use Polycythemia vera Home Medications fluticasone propionate 115 mcg-salmeterol 21 mcg/actuation HFA inhaler (Advair HFA) 2 inhaler inhalation BID asthma 03/04/17 [History Last Taken Unknown] aspirin 81 mg chewable tablet 81 mg PO DAILY 08/16/18 [History Last Taken 10/11/18] albuterol sulfate 90 mcg/actuation aerosol inhaler 1 - 2 puff inhalation Q6H PRN PRN breathing 10/11/18 [History Last Taken Unknown] cholecalciferol (vitamin D3) 25 mcg (1,000 unit) tablet 1,000 unit PO DAILY suplement 10/11/18 [History Last Taken Unknown] Allergy/AdvReac Type Severity Reaction Status Date / Time acetaminophen [From Tylenol] AdvReac Other Verified 11/27/21 01:20 hydrocodone AdvReac Nausea/Vom/ Verified 11/27/21 01:20 Diarrhea metronidazole AdvReac Other Verified 11/27/21 01:20 Sulfa (Sulfonamide AdvReac Shortness Verified 11/27/21 01:20 Antibiotics) of breath adopted (Patient does not know her parents nor her biological family history.) Surgical History (Updated 11/27/21 @ 03:[address] Rebecca Woods MD) History of bunionectomy of right great toe History of right inguinal hernia repair History of tonsillectomy and adenoidectomy Social History (Updated 11/27/21 @ 03:[address] Rebecca Woods MD) household members: spouse Smoking Status: Former smoker how long ago did patient quit smoking: Smoked age [age], smoked up to max 1 ppd until quit. alcohol intake: current alcohol intake frequency: a few times a month substance use type: does not use ROS ROS Narrative Admission Review of Systems: CONSTITUTIONAL: No weight loss, + fever, chills, weakness or fatigue. HEENT: + Headache, congestion, rhinorrhea, sore throat. Eyes: No visual loss, blurred vision, double vision or yellow sclerae. Ears, Nose, Throat: No hearing loss, sneezing. SKIN: No rash or itching, lesions, wounds. CARDIOVASCULAR: + chest pain, No palpitations, edema, orthopnea, syncopal events. RESPIRATORY: + shortness of breath, cough, No marked sputum, wheezing, hemoptysis. GASTROINTESTINAL: + anorexia, nausea, vomiting, diarrhea, No abdominal pain, melena, BRBPR. GENITOURINARY: No dysuria, frequency, urgency or retention. NEUROLOGICAL: + headache, No dizziness, syncope, paralysis, ataxia, numbness or tingling in the extremities, focal weakness, change in bowel or bladder control, seizure. MUSCULOSKELETAL: + muscle, back pain, joint pain or stiffness. HEMATOLOGIC: No anemia, bleeding or bruising. LYMPHATICS: No enlarged nodes. No history of splenectomy. PSYCHIATRIC: No history of depression or anxiety. ENDOCRINOLOGIC: No reports of sweating, cold or heat intolerance. No polyuria or polydipsia. ALLERGIES: + history of asthma, rhinitis. Vital Signs Vital Signs Vital Signs: 11/27/21 01:20 11/27/21 01:23 11/27/21 01:25 Temperature 97.8 F 97.8 F Temperature Source Temporal Temporal Pulse Rate 60 60 Respiratory Rate 19 H 19 H Respiratory Effort Short of Breath Respiratory Depth Normal Respiratory Pattern Tachypnea Blood Pressure 168/85 H Blood Pressure Mean 112 Pulse Ox 95 95 Oxygen Delivery Method Room Air Room Air Room Air Weight Weight: 143 lb 4.807 oz Body Mass Index (BMI) 23.1 Physical Exam Narrative Physical Examination: General: Awake, alert, oriented x 3 and cooperative, seated upright in the ED bed, fatigued, mildly increased respiratory rate, recently back from the restroom with hypoxia noted, improving with rest, on supplemental oxygen. Skin: Normal color, normal turgor, no icterus, no cyanosis. HEENT: AT/NC, EOMI, PERRLA, moderately dry MM, no carotid bruits or JVD noted. Lungs: Diffusely diminished, greater bases, mildly increased respiratory rate, no rales, ronchi or wheezing. Heart: Regular rate with regular rhythm; no gallop, rub audible. Abdomen: Soft, NTTP, ND, distant bowel sounds, no obvious HSM. Extremities: No cyanosis, clubbing, or edema. Neurological: Patient awake, alert, oriented as noted, cognitive function intact; pupils equally reactive to light and accommodation, cranial nerves grossly normal, moving all 4 extremities, no focal deficits, strength moderately to severely global decrease secondary to acute presentation. Psychiatric: Affect appears fatigued, no acute evidence of depressive or anxiety feelings. Results Lab / Micro Data Result Diagrams: 11/27/21 01:35 11/27/21 01:35 Labs: Laboratory Results - last 24 hr 11/27/21 01:35: WBC 11.2 H, RBC 4.10 L, Hgb 12.9, Hct 40.2, MCV 98.0, MCH 31.5, MCHC 32.1, RDW Std Deviation 62.2 H, RDW Coeff of Janett 17.4 H, Plt Count 363, MPV 9.2, Immature Gran % (Auto) 1.500 H, Neut % (Auto) 84.2 H, Lymph % (Auto) 5.7 L, [place] % (Auto) 4.7, Eos % (Auto) 3.3, Baso % (Auto) 0.6, Absolute Neuts (auto) 9.4 H, Absolute Lymphs (auto) 0.64 L, Nucleated RBC % 0 11/27/21 01:35: D-Dimer Quant (PE/DVT) 8.97 H* 11/27/21 01:35: Sodium 136, Potassium 3.6, Chloride 102, Carbon Dioxide 30.0, Anion Gap 4 L, BUN 13, Creatinine 0.86, Estim Creat Clear Calc 46.40, Est GFR (MDRD) Af Amer 81, Est GFR (MDRD) Non-Af 67, BUN/Creatinine Ratio 15.1, Glucose 115 H, Calcium 8.8, Troponin I High Sens 477 H* Radiology Impression Chest X-Ray 11/27/21 01:55 IMPRESSION: No acute disease. Electronically Signed: Landon Johnson MD at 2:30 EDT , Assessment & Plan Assessment/Plan (1) Pulmonary emboli: PLAN: Plan The patient is an 81 y/o F w/ PMHx: Asthma, Hx VTE (DVT, PE), Former tobacco use, ? Polycythemia vera who presents to the [facility] ED on 11/27/21 with history of onset dyspnea the day prior, worse with exertion with self administration of her rescue inhaler at home without marked improvement with transition to the ED for evaluation however at that time the wait was prolonged prompting her to return to her home with some mild improvement however she again worsened and noted that her oxygen level was 86% on room air prompting EMS call with DuoNeb therapy and transition to the ED for evaluation with now onset of discomfort across her back and below her shoulder blades. #1. Dyspnea, chest pain secondary to Acute Bilateral Pulmonary Embolism with evidence cardiac strain with elevated cardiac enzymes, NSTEMI type II suspected secondary to demand, suspected secondary to #2 with associated Hypoxia: EKG without acute findings, D-dimer elevated, CTPA with bilateral pulmonary emboli with evidence of heart right heart strain with a bilateral multi lobar atypical infection, troponin 477. Patient notes no recent prolonged travel which has been the provoking factor in the past with prior to histories of DVT. Will admit to PCU, maintain on cardiac telemetry, will obtain echocardiogram, BNP, cycle cardiac enzymes, continue therapeutic heparin drip with pending AM insurance oral regimen investigation for potentially Eliquis given prior difficulty tolerating Xarelto and issues with maintaining appropriate Coumadin INR level. Mag, FLP pending. Maintain on asa. #2. Acute Atypical Bilateral Pneumonia Suspected secondary to Recent Acute Viral Syndrome, COVID-19: Will maintain on oxygen with wean as tolerated to room air, PRN albuterol, HOB, IS parameters w/ pending sputum cultures, respiratory viral panel and urine antigens, will obtain D-dimer, procalcitonin, CRP, CPK, Ferritin, LDH, cycle troponins, obtain BNP, continue supportive care including q 2 hour turning including prone given no prone bed availability and judicious hydration, closely monitor for worsening status for ARDS and multiorgan failure, will initiate and continue IV decadron x 10 doses, given presentation timeline not canddate for IV remdesivir and as noted awaiting confirmation COVID with PCR. #3. Elevated BP without hypertensive diagnosis: Potentially related to acute presentation as noted number 1, will continue to monitor and add oral regimen if appropriate, as needed IV hydralazine in interim. #4. History of prior Provoked DVT: Hx DVT x 2 following prolonged travel with no associated PE history, previously had been on xarelto with intolerance, transitioned to coumadin however had notable issues with INR levels, frequently elevated. Continue evaluation and treatment as noted above #1. #5. Asthma: Continue oxygen supplementation as noted given acute presentation #1, #2, hold home inhaler and in the interim transition to budesonide inh with RT, PRN albuterol, encourage HOB, IS. #6. Former tobacco use: Encourage continued tobacco cessation. #7. Questionable PCV: Patient CBC with no obvious findings concerning for polycythemia with patient noting this has been a transient issue. Unclear if true diagnosis. #8. DVT prophylaxis: SCDs, continue heparin drip as noted. #9. CODE status: Patient [place] is her and son and living will is currently in place. Discussed CODE status at length including difference between FULL code, DNR-CCA and DNR-CC status. Following discussions about the differences in these status, requested DNR-CCA, no intubation status. Advanced Care Planning Face to Face Time: 16 minutes. Charges/Coding Visit Charges Inpatient E&M: 18098 Init Hosp L3 Procedures Hospitalists Procedures: 76870 Advncd Care Plan 30 Min
[2021-11-27 03:01] LABS: International Normalized Ratio 1.1; Prothrombin Time (Protime)PT. 13.6 SECONDS (11.7-14.9)
[2021-11-27 03:02] LABS: Partial Thromboplast Time 27.9 Seconds (24.1-36.2)
[2021-11-27] MEDS: Heparin Injection (Vial) 5,000 UNIT/ML VIAL 4500 UNIT IV (03:12)
[2021-11-27] MEDS: HEPARIN/D5w 25,000 UNITS 25,000 UNITS/250 ML IV.SOLN. 10 UNITS CONT INF (03:14)
[2021-11-27 03:19] LABS: BNP,B-Type NATRIURETIC PEPTIDE 242.9 pg/mL (0-100)
[2021-11-27 03:44] LABS: Reflex Troponin-HS? (from REC) Y
--- NOTE | 2021-11-27 04:17 | ECHOD_ITS ---
Reason For Study: BL PE, RV Strain Procedure This was a 2D Doppler, Color Flow transthoracic echocardiogram. Exam performed portable in patient room. Left Ventricle Normal LV size. The estimated ejection fraction is 65 %. No evidence for diastolic dysfunction. No regional wall motion abnormalities noted. Right Ventricle Normal RV size. Normal systolic function. Atria Normal left atrium. Normal right atrium. No doppler evidence for ASD. Mitral Valve There is no mitral valve stenosis. No mitral valve insufficiency. Tricuspid Valve There is no tricuspid stenosis. Mild tricuspid valve insufficiency. Pulmonary artery systolic pressure is 55 mmHg. Aortic Valve Trisinus/trileaflet aortic valve. There is no aortic stenosis. No aortic valve insufficiency. Pulmonic Valve There is no pulmonic valvular stenosis. No pulmonic valve insufficiency. Great Vessels Normal aortic root. Pericardium/Pleural No pericardial effusion. MMode/2D Measurements & Calculations LVIDd: 4.1 cm IVSd: 0.80 cm LA dimension: 2.5 cm LVIDs: 2.6 cm LVPWd: 0.84 cm RVDd: 3.8 cm FS: 36.8 % LAV(MOD-bp): 37.3 ml LA A4 area: 15.8 cm2 RA A4 area: 13.7 cm2 LAV(MOD-bp) Indexed: 21.5 ml/m2 LAV(MOD-sp2): 37.3 ml LAV(MOD-sp4): 38.3 ml Time Measurements MV dec time: 0.22 sec Doppler Measurements & Calculations MV E max seth: 65.0 cm/sec Lat Peak E' Seth: 15.0 cm/sec Med Peak E' Seth: 11.8 cm/sec MV A max seth: 83.6 cm/sec E/E' lat: 4.3 E/E' med: 5.5 MV E/A: 0.78 MV V2 max: 86.1 cm/sec MV P1/2t max seth: 67.0 cm/sec Ao V2 max: 142.5 cm/sec MV max P.0 mmHg MV P1/2t: 73.6 msec Ao max P.1 mmHg MV V2 mean: 46.4 cm/sec MV dec slope: 266.4 cm/sec2 MV mean P.0 mmHg MVA(P1/2t): 3.0 cm2 MV V2 VTI: 28.4 cm LV V1 max: 136.8 cm/sec PA V2 max: 91.9 cm/sec TR max seth: 328.6 cm/sec LV V1 max P.5 mmHg TR max P.2 mmHg ECHO/Echo Complete Interpretation Summary The estimated ejection fraction is 65 %. No evidence for diastolic dysfunction. Mild tricuspid valve insufficiency. Pulmonary artery systolic pressure is 55 mmHg. Ordering Physician: Rebecca Woods Referring Physician: Milady Vizcarra M.D. Performed By: Adan Doshi RCS
[2021-11-27] MEDS: 0.9% Normal Saline 1,000 ML 100 ML IV (05:03)
[2021-11-27 05:11] LABS: Procalcitonin 0.11 ng/mL (0.00-0.09)
[2021-11-27 05:23] LABS: AST(SGOT) 14 U/L (15-37); Alanine Aminotransfer ALT/SGPT 16 U/L (13-56); Albumin, Serum 2.8 g/dL (3.2-5.0); Alkaline Phosphatase 74 U/L (45-117); Bilirubin, Direct 0.16 mg/dL (0.00-0.30); Ferritin 250 ng/mL (8-252); Globulin 3.7 g/dL (2.2-4.2); LDH 259 U/L (84-246); Magnesium 2.3 mg/dL (1.6-2.6); Protein, Total 6.5 g/dL (6.4-8.2); Troponin-I HS 386 pg/mL (3.0-54.0)
[2021-11-27] MEDS: dexAMETHasone 10 MG/ML Vial 6 MG IV (06:30)
[2021-11-27] MEDS: Budesonide Respules 0.5 MG/2 ML AMPUL.NEB. INHALATION ×2 (06:54→19:15)
[2021-11-27 07:26] LABS: Absolute Lymphocyte Count 0.73 X10^3/uL (0.83-4.51); Absolute Neutrophil Count 9.3 X10^3/uL (2.0-7.7); Basophil# 0.09 X10^3/uL; Basophil% 0.8 % (0-1); Eosinophil# 0.41 X10^3/uL; Eosinophils% 3.7 % (0-5); Hematocrit 36.4 % (37-47); Hemoglobin 12.2 g/dL (12.0-15.0); Lymphocyte # 0.73 X10^3/ul (0.83-4.51); Lymphocyte % 6.6 % (19-41); Mean Corp Hgb Conc 33.5 g/dL (32-36); Mean Corpuscular Hgb 32.9 pg (27.0-32.0); Mean Corpuscular Volume 98.1 fL (81-99); Mean Platelet Vol. 9.4 fl (6.2-12.0); Monocyte# 0.55 X10^3/uL; Monocyte% 4.9 % (0-10); NRBC Flagged by Analyzer 0 % (0-5); Neutrophil # 9.25 X10^3/uL (2.7-7.7); Platelet Count 363 K/mm3 (150-450); RBC Distribution Width CV 17.5 % (11.6-14.6); RBC Distribution Width SD 62.4 fl (35.1-43.9); Red Blood Count 3.71 M/mm3 (4.2-5.4); White Blood Count 11.1 K/mm3 (4.4-11.0)
[2021-11-27 08:01] LABS: Troponin-I HS 312 pg/mL (3.0-54.0)
[2021-11-27] MEDS: Aspirin 81 MG TAB.CHEW PO (08:17)
[2021-11-27 08:43] LABS: ALB/GLOB Ratio 0.7 RATIO (0.9-2.4); AST(SGOT) 14 U/L (15-37); Alanine Aminotransfer ALT/SGPT 17 U/L (13-56); Albumin, Serum 2.6 g/dL (3.2-5.0); Alkaline Phosphatase 70 U/L (45-117); Anion Gap 6 (5-15); BUN 10 mg/dL (7-18); BUN/Creat Ratio 14.5 RATIO (10-20); Chloride 105 mmol/L (98-107); Cholesterol 132 mg/dL (200); Creatinine, Serum 0.69 mg/dL (0.55-1.02); EST Glomerular Filtration Rate 87 mL/min (>60); Est Glom Filt Rate - Afr Amer 105 mL/min (>60); Globulin 3.5 g/dL (2.2-4.2); Glucose 116 mg/dL (74-106); High Density Lipoprotein 49 mg/dL; Potassium 3.9 mmol/L (3.5-5.1); Protein, Total 6.1 g/dL (6.4-8.2); Sodium Level 138 mmol/L (136-145); Triglycerides 76 mg/dL; Very Low Density Lipoprotein 15 mg/dL (5-40)
[2021-11-27 09:09] LABS: Partial Thromboplast Time 53.2 Seconds (24.1-36.2)
[2021-11-27] MEDS: Heparin Injection (Vial) 5,000 UNIT/ML VIAL IV ×2 (09:41→16:51)
--- NOTE | 2021-11-27 11:15 | CASEMGMT ---
RN HEMANT Face to Face with patient for initial transition planning/care coordination assessment. RN CM introduced self and role at [facility]. Patient lying in bed, alert and oriented, son at bedside. Patient willing to participate in assessment and is able to answer all questions appropriately. Care providers, pharmacy, and demographics verified. Patient wishes to discharge home, denies need for home health at this time. Patient states she has no further needs or concerns at this time. CM to follow for discharge planning needs that may arise. PCP: Zackery Specialists: Naga, hi teacher; Constantin, EVALUATION ADVISOR Preferred Pharmacy: [facility] Insurance: [facility] Prescription Benefit: yes Living Will/HPOA: yes, William Stanley, HPOA LNOK: , son Living Arrangements: Patient lives with in a single story home with 2 steps and grab bar to enter the home. Patient states she is independent at home. Patient states that her is active with hospice. Transportation: self, son DME/HHC: Patient states she has shower chair, raised toielt, and grab bars at home. Patient denies previous HHC or SNF. Will monitor progress with therapy. Patient may benefit from walker at discharge. Patient is currently on oxygen, will monitor for home oxygen at discharge. No preferences for DME. Disposition Plan: Patient to discharge home with family support and follow-up plans in place. Will monitor for walker and home oxygen at discharge. Deneen GARCIA, RN, CM
--- NOTE | 2021-11-27 11:54 | CASEMGMT ---
Patient has a Healthcare Power of Clinical Business Analyst and Healthcare Living Will on file at [facility]. Patient's Healthcare Power of Clinical Business Analyst is her William. Demi BROWNLEE
--- NOTE | 2021-11-27 13:34 | PCM.PN.HOSP ---
Subjective Subjective Follow-up on acute bilateral PE with right strain: Patient was seen and examined. Denied any new complaints. She is on 2 L of oxygen. Denied any chest pain or shortness of breath Objective Data Objective Data Vital Signs: Vital Signs Temp Pulse Resp BP Pulse Ox O2 Del Method O2 Flow Rate 98.0 F 77 16 122/68 H 97 Nasal Cannula 2 11/27/21 11:00 11/27/21 11:00 11/27/21 11:00 11/27/21 11:00 11/27/21 11:00 11/27/21 11:00 11/27/21 11:00 Oxygen Flow Rate (L/min) 2 Oxygen Delivery Method Nasal Cannula Weight: 61.4 kg Body Mass Index (BMI) 21.8 Intake & Output: Intake and Output for Last 24 Hours 11/25/21 11/26/21 11/27/21 23:59 23:59 23:59 Intake Total 744.83 / 744.83 Balance 744.83 / 744.83 Lab / Micro Data Result Diagrams: 11/27/21 04:30 11/27/21 07:17 Labs: Laboratory Results - last 24 hr 11/27/21 01:35: WBC 11.2 H, RBC 4.10 L, Hgb 12.9, Hct 40.2, MCV 98.0, MCH 31.5, MCHC 32.1, RDW Std Deviation 62.2 H, RDW Coeff of Janett 17.4 H, Plt Count 363, MPV 9.2, Immature Gran % (Auto) 1.500 H, Neut % (Auto) 84.2 H, Lymph % (Auto) 5.7 L, [place] % (Auto) 4.7, Eos % (Auto) 3.3, Baso % (Auto) 0.6, Absolute Neuts (auto) 9.4 H, Absolute Lymphs (auto) 0.64 L, Nucleated RBC % 0 11/27/21 01:35: D-Dimer Quant (PE/DVT) 8.97 H* 11/27/21 01:35: Sodium 136, Potassium 3.6, Chloride 102, Carbon Dioxide 30.0, Anion Gap 4 L, BUN 13, Creatinine 0.86, Estim Creat Clear Calc 46.40, Est GFR (MDRD) Af Amer 81, Est GFR (MDRD) Non-Af 67, BUN/Creatinine Ratio 15.1, Glucose 115 H, Calcium 8.8, Troponin I High Sens 477 H* 11/27/21 01:35: PT 13.6, INR 1.1, APTT 27.9 11/27/21 01:35: B-Natriuretic Peptide 242.9 H 11/27/21 03:25: COVID-19 (JERROD) Negative 11/27/21 04:30: Magnesium 2.3, Ferritin 250, Total Bilirubin 0.60, Direct Bilirubin 0.16, AST 14 L, ALT 16, Alkaline Phosphatase 74, Lactate Dehydrogenase 259 H, Troponin I High Sens 386 H*, C-React Prot Ext Range 36.10 H, Total Protein 6.5, Albumin 2.8 L, Globulin 3.7 11/27/21 04:30: Procalcitonin 0.11 H 11/27/21 04:30: WBC 11.1 H, RBC 3.71 L, Hgb 12.2, Hct 36.4 L, MCV 98.1, MCH 32.9 H, MCHC 33.5, RDW Std Deviation 62.4 H, RDW Coeff of Janett 17.5 H, Plt Count 363, MPV 9.4, Immature Gran % (Auto) 1.000 H, Neut % (Auto) 83.0 H, Lymph % (Auto) 6.6 L, [place] % (Auto) 4.9, Eos % (Auto) 3.7, Baso % (Auto) 0.8, Absolute Neuts (auto) 9.3 H, Absolute Lymphs (auto) 0.73 L, Nucleated RBC % 0 11/27/21 07:17: Sodium 138, Potassium 3.9, Chloride 105, Carbon Dioxide 27.0, Anion Gap 6, BUN 10, Creatinine 0.69, Estim Creat Clear Calc 39.90, Est GFR (MDRD) Af Amer 105, Est GFR (MDRD) Non-Af 87, BUN/Creatinine Ratio 14.5, Glucose 116 H, Calcium 8.0 L, Total Bilirubin 0.60, AST 14 L, ALT 17, Alkaline Phosphatase 70, Total Protein 6.1 L, Albumin 2.6 L, Globulin 3.5, Albumin/Globulin Ratio 0.7 L, Triglycerides 76, Cholesterol 132, LDL Cholesterol 68, VLDL Cholesterol 15, HDL Cholesterol 49 11/27/21 07:17: Troponin I High Sens 312 H* 11/27/21 08:44: APTT 53.2 H Micro: Microbiology 11/27/21 05:00 Urine, Clean Catch Legionella Antigen - Final 11/27/21 05:00 Urine, Clean Catch Streptococcus pneumoniae Antigen (M - Final 11/27/21 04:35 Mucosa - Nasopharyngeal Respiratory Panel (PCR) - Final Radiography Diagnostic Testing: Radiology Impression Chest X-Ray 11/27/21 01:55 IMPRESSION: No acute disease. Electronically Signed: Landon Johnson MD at 2:30 EDT , Chest CTA 11/27/21 02:09 IMPRESSION: 1. Bilateral PE with right heart strain suggested. 2. Bilateral multilobar atypical infection. Dr. Nena Scmhid was notified of the findings at 11:58 PM [place] time 11/26/21. N.B. : The above Results were Read Back by Landon Johnson MD to Nena Schmid MD, and understanding confirmed on 11/27/2021 02:58:26 (ET). Electronically Signed: Landon Johnson MD at 3:00 EDT , ADDENDUM: 11/27/21 0307 IMPRESSION: 1. Bilateral PE with right heart strain suggested. 2. Bilateral multilobar atypical infection. Dr. Nena Schmid was notified of the findings at 11:58 PM [place] time 11/26/21. N.B. : The above Results were Read Back by Landon Johnson MD to Nena Schmid MD, and understanding confirmed on 11/27/2021 02:58:26 (ET). Electronically Signed: Landon Johnson MD at 3:00 EDT , Echocardiogram 11/27/21 04:17 Interpretation Summary The estimated ejection fraction is 65 %. No evidence for diastolic dysfunction. Mild tricuspid valve insufficiency. Pulmonary artery systolic pressure is 55 mmHg. Ordering Physician: Rebecca Woods Referring Physician: Milady Vizcarra M.D. Performed By: Adan Doshi RCS Physical Exam Narrative Physical exam: General: Alert, Oriented x3, Cooperative, No apparent distress HEENT: Atraumatic Oral: Moist Mucosa Neck: Supple Lungs: Diminished to auscultation Cardiovascular: HS I+II, regular, no murmurs Abdomen: Bowel Sounds Present, Soft, Non Tender Extremities: No edema Skin: No rashes, No breakdown Neurological: Grossly intact Psych/Mental Status: Appropriate Assessment & Plan Assessment/Plan (1) Pulmonary emboli: (2) Hypoxia: PLAN: Plan 1. Acute bilateral PE with evidence of heart strain, seen on CTA of the chest Patient with history of recurrent DVT. 2D echo shows EF of 65% Continue on heparin drip Pulmonology consult 2. Acute hypoxia secondary to #1, patient is on 2 L of oxygen Continue to wean off for SPO2 more than 92% 3. Elevated troponin secondary to #1, continue to trend 4. Polycythemia vera, continue hydroxyurea and aspirin 5. DVT prophylaxis?on heparin drip Charges/Coding Visit Charges Inpatient E&M: 23392 Subs Hosp L3
[2021-11-27] MEDS: HEPARIN/D5w 25,000 UNITS 25,000 UNITS/250 ML IV.SOLN. 11 UNITS CONT INF (14:23)
--- NOTE | 2021-11-27 14:30 | CASEMGMT ---
Therapy evals still pending. Pt declines need for WW or any further therapy at d/c. Green sheet on chart for home oxygen, if pt qualifies at discharge. Gloria LEIJA CM
--- NOTE | 2021-11-27 15:18 | NURSING ---
1423 Dr. Martinez decided to continue Heparin drip after discontinuing medication. New nursing communication to continue previous protocol though Dr. Martinez placed new order.
[2021-11-27 16:22] LABS: Partial Thromboplast Time 49.1 Seconds (24.1-36.2)
--- NOTE | 2021-11-27 19:55 | PCA ---
Patient stated her wallet has gone missing Nurse Diandra was informed. RN and I looked in room for said wallet, nothing has been found at this time
[2021-11-27 23:15] LABS: Partial Thromboplast Time 77.9 Seconds (24.1-36.2)
[2021-11-28] VITALS (8 sets, daily range): BP systolic 133–136; BP diastolic 64–68; PULSE 67–78; RESP 16–18; TEMP 37.1–37.2; O2SAT 86–99
[2021-11-28] MEDS: Acetaminophen 325 MG Tablet 650 MG PO (03:19)
[2021-11-28 05:55] LABS: Partial Thromboplast Time 75.5 Seconds (24.1-36.2)
[2021-11-28] MEDS: Budesonide Respules 0.5 MG/2 ML AMPUL.NEB. INHALATION (07:10)
--- NOTE | 2021-11-28 07:35 | EX.PCM.CONCC ---
Documented by User: Dr. Micheal Medina MD 11/28/21 10:01 Assessment & Plan Assessment/Plan (1) Pulmonary emboli: QUALIFIERS: Acute cor pulmonale presence: without acute cor pulmonale Chronicity: acute Pulmonary embolism type: saddle Qualified Code(s): I26.92 - Saddle embolus of pulmonary artery without acute cor pulmonale PLAN: Plan RECOMMENDATIONS: 1. Walking pulse ox on room air prior to discharge 2. Repeat echocardiogram in 4 to 6 weeks 3. If increased pulmonary artery pressures persist on follow up echo, refer to pulmonology 4. Follow-up with Dr. Nielson for management of polycythemia vera and anticoagulation recommendations 5. Okay to discharge when able to ambulate on room air 6. If patient demands to go home, will likely require supplemental oxygen. Reevaluate in 4 to 6 weeks for cessation of oxygen IMPRESSIONS: 1. Bilateral pulmonary emboli Patient has remote history of DVT, provoked by travel approximately 10 years ago, as well as polycythemia vera. Recurrent thrombosis put her at increased risk for future thrombosis indicating lifelong anticoagulation. With previous DVT, patient had adverse reaction of back pain with Xarelto and had difficulty maintaining therapeutic INR with Coumadin. Since that time, patient has been taking 81 mg aspirin. Currently, patient is on heparin drip and maintaining goal PTT. Patient is agreeable to extended anticoagulation at discharge with Eliquis. Patient already established with Dr. Nielson and he can provide future recommendations on anticoagulation if patient is unable to tolerate Eliquis 2. Right heart strain secondary to bilateral pulmonary emboli CT of the chest demonstrated dilated cardiac chambers suggesting right heart strain. This was confirmed by echocardiogram with pulmonary artery systolic pressure at 55 mmHg. Patient should have echocardiogram in 4 to 6 weeks following discharge to reevaluate pulmonary artery pressure. If remains elevated, patient should follow-up with pulmonology. 3. Polycythemia vera Per the patient, this was found incidentally on routine blood work in the last few months. Patient was then referred to Dr. Nielson, and she has begun treatment with hydroxyurea, within the last 6 weeks. On presentation to the emergency department, CBC revealed hematocrit of 42 and a hemoglobin of 12.9, suggestive of appropriate titration of hydroxyurea. 4. Degenerative osteoarthritis, degenerative disc disease, advanced age Complicates care, management, recovery, and prognosis. Okay to continue with baseline medications. CODE STATUS has been confirmed. HPI Consult Data Date of Consult: 11/28/21 HPI Narrative Reason for Consultation: Submassive PE HPI Narrative: SAMUEL STANLEY, is a 81 F who presented to the [facility] emergency department on November 27, 2021 for dyspnea on exertion. The patient stated the week preceding this she developed shortness of breath, intermittent fevers, dry cough, decreased appetite and intermittent chest tightness. The patient stated that she was evaluated at urgent care where a chest x-ray, urinalysis, and COVID test were performed. All were negative. However, the shortness of breath persisted despite inhaler use, which prompted her to call EMS for tansport to the emergency department. On arrival, the patient's oxygen saturation was 95% on 2 L. In the emergency department, the patient was noted to have an elevated D-dimer of 8.97. Consequently, a chest CTA was performed demonstrating bilateral pulmonary emboli with evidence of right heart strain and also suggested a bilateral atypical infection. Troponin was elevated at 477, but no evidence of ischemia on EKG. She was admitted to the progressive care unit and started on a heparin drip. An echocardiogram was performed and revealed elevated pulmonary artery systolic pressure at 55 mmHg with an EF of 65%, but no evidence of systolic dysfunction or valve insufficiency. Pulmonology was consulted to give recommendations on submassive PE. When patient was evaluated, patient was very tearful. Patient stated that she had to get home to her that is on hospice. Patient did report that she had significant shortness of breath with walking to the bathroom and had to be placed back on supplemental oxygen. Patient stated that she is willing to wear supplemental oxygen if necessary at discharge, but has to go home today. Patient was very tearful. Patient did not report any bleeding episodes such as epistaxis, hemoptysis, melena or hematochezia. Patient did have some bruising associated with IV sites but none were reported as excessive. Patient did confirm that she has had complications with anticoagulation in the past, but does follow with Dr. Nielson. Patient reports a history of asthma, but is not actively following with a housesmith. Patient has been seen at the [facility] for this previously. [facility] Medical History Asthma DVT (deep venous thrombosis) Former tobacco use Polycythemia vera Home Medications fluticasone propionate 115 mcg-salmeterol 21 mcg/actuation HFA inhaler (Advair HFA) 2 inhaler inhalation BID asthma 03/04/17 [History Last Taken Unknown] aspirin 81 mg chewable tablet 81 mg PO DAILY 08/16/18 [History Last Taken 10/11/18] albuterol sulfate 90 mcg/actuation aerosol inhaler 1 - 2 puff inhalation Q6H PRN PRN breathing 10/11/18 [History Last Taken Unknown] cholecalciferol (vitamin D3) 25 mcg (1,000 unit) tablet 1,000 unit PO DAILY suplement 10/11/18 [History Last Taken Unknown] hydroxyurea 500 mg capsule 500 mg PO DAILY Check with primary doctor 11/27/21 [History Last Taken 11/26/21 10:30] Allergy/AdvReac Type Severity Reaction Status Date / Time acetaminophen [From Tylenol] AdvReac Other Verified 11/27/21 01:20 hydrocodone AdvReac Nausea/Vom/ Verified 11/27/21 01:20 Diarrhea metronidazole AdvReac Other Verified 11/27/21 01:20 Sulfa (Sulfonamide AdvReac Shortness Verified 11/27/21 01:20 Antibiotics) of breath Family History adopted Surgical History History of bunionectomy of right great toe History of right inguinal hernia repair History of tonsillectomy and adenoidectomy Social History household members: spouse Smoking Status: Former smoker how long ago did patient quit smoking: Smoked age [age], smoked up to max 1 ppd until quit. alcohol intake: current alcohol intake frequency: a few times a month substance use type: does not use Physical Exam Const General Appearance: Negative for ill appearing Neck Neck Narrative: Right JVD Resp Auscultation: Negative for rales, rhonchi or wheezes Lab / Micro Data Result Diagrams: 11/28/21 08:40 11/27/21 07:17 Labs: Laboratory Results - last 24 hr 11/27/21 07:17: Sodium 138, Potassium 3.9, Chloride 105, Carbon Dioxide 27.0, Anion Gap 6, BUN 10, Creatinine 0.69, Estim Creat Clear Calc 39.90, Est GFR (MDRD) Af Amer 105, Est GFR (MDRD) Non-Af 87, BUN/Creatinine Ratio 14.5, Glucose 116 H, Calcium 8.0 L, Total Bilirubin 0.60, AST 14 L, ALT 17, Alkaline Phosphatase 70, Total Protein 6.1 L, Albumin 2.6 L, Globulin 3.5, Albumin/Globulin Ratio 0.7 L, Triglycerides 76, Cholesterol 132, LDL Cholesterol 68, VLDL Cholesterol 15, HDL Cholesterol 49 11/27/21 07:17: Troponin I High Sens 312 H* 11/27/21 08:44: APTT 53.2 H 11/27/21 15:55: APTT 49.1 H 11/27/21 22:54: APTT 77.9 H 11/28/21 05:15: APTT 75.5 H Micro: Microbiology 11/27/21 05:00 Urine, Clean Catch Legionella Antigen - Final 11/27/21 05:00 Urine, Clean Catch Streptococcus pneumoniae Antigen (M - Final 11/27/21 04:35 Mucosa - Nasopharyngeal Respiratory Panel (PCR) - Final Radiology Impression Echocardiogram 11/27/21 04:17 Interpretation Summary The estimated ejection fraction is 65 %. No evidence for diastolic dysfunction. Mild tricuspid valve insufficiency. Pulmonary artery systolic pressure is 55 mmHg. Ordering Physician: Rebecca Woods Referring Physician: Milady Vizcarra M.D. Performed By: Adan Doshi RCS Charges/Coding Visit Charges Inpatient E&M: 60018 Init Hosp L2 Documented by User: LETA MARIE 11/28/21 09:34 Assessment & Plan Assessment/Plan (1) Pulmonary emboli: QUALIFIERS: Acute cor pulmonale presence: without acute cor pulmonale Chronicity: acute Pulmonary embolism type: saddle Qualified Code(s): I26.92 - Saddle embolus of pulmonary artery without acute cor pulmonale PLAN: Plan RECOMMENDATIONS: 1. Walking pulse ox on room air prior to discharge 2. Repeat echocardiogram in 4 to 6 weeks 3. If increased pulmonary artery pressures persist, refer to pulmonology 4. Follow-up with Dr. Nielson for management of polycythemia vera and pulmonary emboli 5. Okay to discharge when able to ambulate on room air IMPRESSIONS: 1. Bilateral pulmonary emboli Patient has remote history of DVT, provoked by travel approximately 10 years ago, as well as polycythemia vera. These put her at increased risk for thrombosis. With previous DVT, patient had adverse reaction of back pain with Xarelto and had difficulty maintaining therapeutic INR with Coumadin. Since that time, patient has been taking 81 mg aspirin. Currently, patient is on heparin drip and maintaining goal PTT. Patient is agreeable to extended anticoagulation at discharge with Eliquis. 2. Right heart strain secondary to bilateral pulmonary emboli CT of the chest demonstrated dilated cardiac chambers suggesting right heart strain. This was confirmed by echocardiogram with pulmonary artery systolic pressure at 55 mmHg. Patient should have echocardiogram in 4 to 6 weeks following discharge to reevaluate pulmonary artery pressure. If remains elevated, patient should follow-up with pulmonology. 3. Polycythemia vera Per the patient, this was found incidentally on routine blood work in the last few months. Patient was then referred to Dr. Nielson, and she has begun treatment with hydroxyurea, within the last 6 weeks. On presentation to the emergency department, CBC revealed hematocrit of 42 and a hemoglobin of 12.9, suggestive of appropriate titration of hydroxyurea. 4. Degenerative osteoarthritis, degenerative disc disease, advanced age Complicates care, management, recovery, and prognosis. Okay to continue with baseline medications. CODE STATUS has been confirmed. HPI Consult Data Date of Consult: 11/28/21 HPI Narrative Reason for Consultation: Bilateral pulmonary emboli HPI Narrative: SAMUEL STANLEY, is a 81 F who presented to the [facility] emergency department on November 27, 2021 for dyspnea on exertion. The patient stated the week preceding this she developed shortness of breath, intermittent fevers, dry cough, decreased appetite and intermittent chest tightness. The patient stated that she was evaluated at urgent care where a chest x-ray, urinalysis, and COVID test were performed. All were negative. However, the shortness of breath persisted despite inhaler use, which prompted her to call EMS for tansport to the emergency department. On arrival, the patient's oxygen saturation was 95% on 2 L. In the emergency department, the patient was noted to have an elevated D-dimer of 8.97. Consequently, a chest CTA was performed demonstrating bilateral pulmonary emboli with evidence of right heart strain and also suggested a bilateral atypical infection. Troponin was elevated at 477, but no evidence of ischemia on EKG. She was admitted to the progressive care unit and started on a heparin drip. An echocardiogram was performed and revealed elevated pulmonary artery systolic pressure at 55 mmHg with an EF of 65%, but no evidence of systolic dysfunction or valve insufficiency. Pulmonology was consulted to follow. [facility] Medical History Asthma DVT (deep venous thrombosis) Former tobacco use Polycythemia vera Home Medications fluticasone propionate 115 mcg-salmeterol 21 mcg/actuation HFA inhaler (Advair HFA) 2 inhaler inhalation BID asthma 03/04/17 [History Last Taken Unknown] aspirin 81 mg chewable tablet 81 mg PO DAILY 08/16/18 [History Last Taken 10/11/18] albuterol sulfate 90 mcg/actuation aerosol inhaler 1 - 2 puff inhalation Q6H PRN PRN breathing 10/11/18 [History Last Taken Unknown] cholecalciferol (vitamin D3) 25 mcg (1,000 unit) tablet 1,000 unit PO DAILY suplement 10/11/18 [History Last Taken Unknown] hydroxyurea 500 mg capsule 500 mg PO DAILY Check with primary doctor 11/27/21 [History Last Taken 11/26/21 10:30] Allergy/AdvReac Type Severity Reaction Status Date / Time acetaminophen [From Tylenol] AdvReac Other Verified 11/27/21 01:20 hydrocodone AdvReac Nausea/Vom/ Verified 11/27/21 01:20 Diarrhea metronidazole AdvReac Other Verified 11/27/21 01:20 Sulfa (Sulfonamide AdvReac Shortness Verified 11/27/21 01:20 Antibiotics) of breath Family History adopted Surgical History History of bunionectomy of right great toe History of right inguinal hernia repair History of tonsillectomy and adenoidectomy Social History household members: spouse Smoking Status: Former smoker how long ago did patient quit smoking: Smoked age [age], smoked up to max 1 ppd until quit. alcohol intake: current alcohol intake frequency: a few times a month substance use type: does not use ROS Constitutional Constitutional: Reports fatigue; Denies body ache(s), chills, fever(s), headache(s), malaise, night sweats or weakness Eyes Eyes: Denies blurry vision, change in vision or loss of vision ENT HEENT: Denies dizziness, dysphagia, epistaxis, headache(s), hoarseness, loss taste/smell, nasal congestion, nasal discharge or sore throat Cardiovascular Cardiovascular: Reports chest pain and dyspnea; Denies claudication, dizziness, edema, irregular heart rhythm or lightheadedness Respiratory/Chest Respiratory/Chest: Reports chest tightness, cough, dyspnea and shortness of breath with exertion; Denies hemoptysis, non-rest sleep EDS, pain on inspiration, snoring, wheezing or witnessed apneas Gastrointestinal Gastrointestinal: Denies abdominal pain, diarrhea, dyspepsia, dysphagia, heartburn, hematochezia, melena, nausea or vomiting Genitourinary Genitourinary: Denies difficulty urinating, dysuria, flank pain, hematuria, polyuria or urinary frequency Musculoskeletal Musculoskeletal: Reports back pain and other Details: Chronic intermittent back pain ; Denies arthralgias, joint pain or myalgias Integumentary Integumentary: Denies lesions, rash, skin ulcer or wounds Neurologic Neurologic: Denies abnormal gait, abnormal speech, confusion, focal weakness, loss of vision, seizure-like activity or syncope Psychiatric Psychiatric: Denies anxiety, depression, hallucinations, homicidal ideation, panic attacks or suicidal ideation Endocrine Endocrinology: Reports fatigue; Denies polydipsia or polyuria Hematologic/Lymphatic Hematologic/Lymphatic: Denies easy bleeding or easy bruising Physical Exam Const alert, oriented x3 and no apparent distress Constitutional Narrative: Ms. Stanley is an 81-year-old, pleasant female who is alert but appears fatigued. General Appearance: cooperative HEENT normocephalic, head/scalp atraumatic and moist oral mucous membranes Mouth: oral and palatal mucosa normal Eyes PERRL, EOMs intact bilaterally and conjunctivae normal Neck supple General: trachea midline Lymph Lymphatic: no lymphadenopathy noted Chest inspection of chest normal Chest Narrative: Mild tenderness to palpation. Resp normal respiratory effort and no use of accessory muscles Effort and Inspection: able to speak in complete sentences and actively coughing non-productive and strong; Negative for tachypneic or labored Auscultation: clear to auscultation bilaterally Cardio regular rate, regular rhythm, S1 normal heart sound, S2 normal heart sound, no murmurs, no rub, no gallops and no JVD GI normal to inspection, nondistended, normoactive bowel sounds, soft to palpation and non-tender Palpation: Negative for tender, guarding, rigid or ascites no CVA tenderness Back/Spine Back/Spine Narrative: Mild tenderness on palpation in the lumbar area. Extremity no clubbing, cyanosis or edema Skin no rashes or lesions noted General Skin Exam: Negative for erythema, fluctuance, lichenification, mottling, venous stasis or dermatitis Neuro oriented x3, CN's II-XII intact bilaterally, moves all extremities and no focal motor deficits Speech: speech normal Psych cooperative and affect normal Psych Narrative: Patient is very alert and appropriately interactive. Appearance: well kempt Activity / Motor Behavior: Negative for restless Speech: normal speech Mood & Affect: Negative for anxious Medical Records Data Attestation: I reviewed the patient's medical records Lab / Micro Data Attestation: I reviewed the patient's lab results. Result Diagrams: 11/28/21 08:40 11/27/21 07:17
--- NOTE | 2021-11-28 08:55 | EKG12_ITS ---
Test Reason : CHEST PAIN Blood Pressure : / mmHG Vent. Rate : 076 BPM Atrial Rate : 076 BPM P-R Int : 148 ms QRS Dur : 072 ms QT Int : 388 ms P-R-T Axes : 074 056 071 degrees QTc Int : 436 ms Normal sinus rhythm Normal ECG Confirmed by TESSIE RAMOS, DEMETRIO ([id number]), technical editor EUSEBIO MINAYA ([id number]) on 12/01/2021 11:04:06 AM Referred By: Confirmed By:DEMETRIO KURTZ MD
[2021-11-28] MEDS: Aspirin 81 MG TAB.CHEW PO (09:01)
[2021-11-28 09:11] LABS: Absolute Lymphocyte Count 0.81 X10^3/uL (0.83-4.51); Absolute Neutrophil Count 8.9 X10^3/uL (2.0-7.7); Basophil# 0.12 X10^3/uL; Basophil% 1.1 % (0-1); Eosinophil# 0.42 X10^3/uL; Eosinophils% 3.8 % (0-5); Hemoglobin 12.1 g/dL (12.0-15.0); Lymphocyte # 0.81 X10^3/ul (0.83-4.51); Lymphocyte % 7.3 % (19-41); Mean Corp Hgb Conc 32.7 g/dL (32-36); Mean Corpuscular Hgb 32.8 pg (27.0-32.0); Mean Corpuscular Volume 100.3 fL (81-99); Mean Platelet Vol. 9.1 fl (6.2-12.0); Monocyte# 0.63 X10^3/uL; Monocyte% 5.7 % (0-10); NRBC Flagged by Analyzer 0 % (0-5); Neutrophil # 8.91 X10^3/uL (2.7-7.7); Neutrophil % 80.7 % (47-70); Platelet Count 389 K/mm3 (150-450); RBC Distribution Width CV 17.7 % (11.6-14.6); RBC Distribution Width SD 63.7 fl (35.1-43.9); Red Blood Count 3.69 M/mm3 (4.2-5.4)
[2021-11-28 09:42] LABS: ALB/GLOB Ratio 0.7 RATIO (0.9-2.4); AST(SGOT) 17 U/L (15-37); Alanine Aminotransfer ALT/SGPT 19 U/L (13-56); Albumin, Serum 2.7 g/dL (3.2-5.0); Alkaline Phosphatase 77 U/L (45-117); Anion Gap 5 (5-15); BUN 11 mg/dL (7-18); BUN/Creat Ratio 14.6 RATIO (10-20); Calcium,Total 8.5 mg/dL (8.5-10.1); Chloride 101 mmol/L (98-107); Creatinine, Serum 0.76 mg/dL (0.55-1.02); EST Glomerular Filtration Rate 78 mL/min (>60); Est Glom Filt Rate - Afr Amer 94 mL/min (>60); Globulin 3.9 g/dL (2.2-4.2); Glucose 102 mg/dL (74-106); Potassium 3.6 mmol/L (3.5-5.1); Protein, Total 6.6 g/dL (6.4-8.2); Sodium Level 136 mmol/L (136-145)
[2021-11-28] MEDS: Hydroxyurea 500 MG Capsule PO (10:30)
--- NOTE | 2021-11-28 11:14 | DS.PCM_ITS ---
Providers Date of Admission: 11/27/21 Date of Discharge: 11/28/21 Primary Care Physician: Dr. Milady Vizcarra MD Consultations 11/27/21 14:02 Consult: Frame Sample And Pattern Supervisor / Pulmonary Medicine Routine Consulting Provider: Pulmonary Medicine mana Winfield Reason for Consult: Massive PE with heart strain EMERGENT Consult: No MD Notified: Yes Date Notified: 11/27/21 Time Notified: 14:03 Method of Notification: Text Reason For Visit: BL PE, HYPOXIA Diagnosis Discharge Diagnosis (1) Pulmonary emboli: Status: Acute Code(s): I26.99 - Other pulmonary embolism without acute cor pulmonale Qualifiers: Acute cor pulmonale presence: without acute cor pulmonale Chronicity: acute Pulmonary embolism type: saddle Qualified Code(s): I26.92 - Saddle embolus of pulmonary artery without acute cor pulmonale Plan 1. Acute bilateral PE with evidence of heart strain 2. Acute hypoxia secondary to #1 3. Elevated troponin secondary to #1 4. Polycythemia vera Medications at Discharge Home Medications fluticasone propionate 115 mcg-salmeterol 21 mcg/actuation HFA inhaler (Advair HFA) 2 inhaler inhalation BID asthma 03/04/17 aspirin 81 mg chewable tablet 81 mg PO DAILY 08/16/18 albuterol sulfate 90 mcg/actuation aerosol inhaler 1 - 2 puff inhalation Q6H PRN PRN breathing 10/11/18 cholecalciferol (vitamin D3) 25 mcg (1,000 unit) tablet 1,000 unit PO DAILY suplement 10/11/18 hydroxyurea 500 mg capsule 500 mg PO DAILY Check with primary doctor 11/27/21 apixaban 5 mg (74 tabs) tablets in a dose pack (Eliquis DVT-PE Treat 30D Start) See Taper PO BID #74 tabs 11/28/21 Hospital Course Operations None Procedures None Summary of Care Provided Minutes Spent on Discharge: 35 Hospital Course: 81-year-old female with past medical history of polycythemia vera, history of DVTs, not on anticoagulation, on aspirin, who comes in with complaints of dyspnea and found to be hypoxic in the emergency room. Patient COVID-19 PCR was negative on admission. D-dimer was elevated at 8.97. CTA of the chest showed bilateral PE with evidence of right heart strain. Patient's EKG showed no acute ST-T changes. Troponin was also elevated. She was started on heparin drip. 2D echo showed EF of 65%. Patient did require oxygen during this admission. She required 2 L of oxygen. Pulmonology was consulted. Patient did qualify for oxygen at discharge. She was transitioned to Eliquis. She was discharged home with oxygen and asked to follow-up with pulmonology in 2 weeks. Patient appears to have improved earlier than anticipated 2 midnight stays. She was also eager to be discharged to go to an who was doing well. On the day of discharge, patient was seen and examined. His son and [id number] were present. She had an episode of chest discomfort that was very transient. EKG done showed no acute abnormality Physical Exam Narrative Physical exam: General: Alert, Oriented x3, Cooperative, No apparent distress HEENT: Atraumatic Oral: Moist Mucosa Neck: Supple Lungs: Diminished to auscultation Cardiovascular: HS I+II, regular, no murmurs Abdomen: Bowel Sounds Present, Soft, Non Tender Extremities: No edema Skin: No rashes, No breakdown Neurological: Grossly intact Psych/Mental Status: Appropriate Weight / BMI Weight Weight: 61.8 kg Body Mass Index (BMI) 21.8 ABG / Lab / Microbiology Data Result Diagrams: 11/28/21 08:40 11/28/21 08:40 Laboratory: Laboratory Results - last 24 hr 11/27/21 15:55: APTT 49.1 H 11/27/21 22:54: APTT 77.9 H 11/28/21 05:15: APTT 75.5 H 11/28/21 08:40: WBC 11.0, RBC 3.69 L, Hgb 12.1, Hct 37.0, MCV 100.3 H, MCH 32.8 H, MCHC 32.7, RDW Std Deviation 63.7 H, RDW Coeff of Janett 17.7 H, Plt Count 389, MPV 9.1, Immature Gran % (Auto) 1.400 H, Neut % (Auto) 80.7 H, Lymph % (Auto) 7.3 L, Sawyer % (Auto) 5.7, Eos % (Auto) 3.8, Baso % (Auto) 1.1 H, Absolute Neuts (auto) 8.9 H, Absolute Lymphs (auto) 0.81 L, Nucleated RBC % 0 11/28/21 08:40: Sodium 136, Potassium 3.6, Chloride 101, Carbon Dioxide 30.0, Anion Gap 5, BUN 11, Creatinine 0.76, Estim Creat Clear Calc 39.90, Est GFR (MDRD) Af Amer 94, Est GFR (MDRD) Non-Af 78, BUN/Creatinine Ratio 14.6, Glucose 102, Calcium 8.5, Total Bilirubin 0.80, AST 17, ALT 19, Alkaline Phosphatase 77, Total Protein 6.6, Albumin 2.7 L, Globulin 3.9, Albumin/Globulin Ratio 0.7 L Microbiology: Microbiology 11/27/21 05:00 Urine, Clean Catch Legionella Antigen - Final 11/27/21 05:00 Urine, Clean Catch Streptococcus pneumoniae Antigen (M - Final 11/27/21 04:35 Mucosa - Nasopharyngeal Respiratory Panel (PCR) - Final Radiography Diagnostic Testing: Radiology Impression Echocardiogram 11/27/21 04:17 Interpretation Summary The estimated ejection fraction is 65 %. No evidence for diastolic dysfunction. Mild tricuspid valve insufficiency. Pulmonary artery systolic pressure is 55 mmHg. Ordering Physician: Rebecca Woods Referring Physician: Milady Vizcarra M.D. Performed By: Adan Doshi RCS D/C Instructions Discharge Diet: No restrictions Meaningful Use Info Meaningful Use Diagnoses (Choose all that apply): VTE VTE Anticoag overlap given w/in hospital stay or rx'd at dc?: Yes Pt receive overlap for 5 days?: No Reason overlap not ordered, prescribed, or given for 5 days: Treatment Not Indicated Discharge Plan Admission Admit Date/Time: 11/27/21 02:55 Primary Reason for Your Visit: Acute bilateral PE with right heart strain Attending Provider: Ailyn Martinez Primary Care Provider: Milady Vizcarra Consulting Providers: Rebecca Woods ; Micheal Medina ; Eagle Canales ; Bashir Velasquez ; Antonio Cohen ; Jessi Chavarria TAX EXPERT Instructions Additional Instructions / Restrictions: Continue to use your oxygen as prescribed Continue to use your incentive spirometer 10 times every 1 hour while awake Do not go near open flames whilst on oxygen You are being discharged on Eliquis Follow-up with pulmonology within 2-week Follow-up with your primary care doctor within a week Discharge Orders/Prescriptions Prescriptions: New Eliquis DVT-PE Treat 30D Start 5 mg (74 tabs) tablets,dose pack See Taper PO BID Qty: 74 0RF Taper: Apixaban VTE Treatment 10 mg TWICE A DAY for 7 Days 5 mg TWICE A DAY for 30 Days Continued Advair HFA 115-21M inhaler 2 inhaler inhalation BID Label Comments: aspirin 81 MG tablet,chewable 81 mg PO DAILY Label Comments: stopped for surgery per dr lberon albuterol sulfate 1 INHALER inhaler 1 - 2 puff inhalation Q6H PRN PRN (Reason: breathing) cholecalciferol (vitamin D3) 1,000 UNIT tablet 1,000 unit PO DAILY hydroxyurea 500 mg capsule 500 mg PO DAILY Label Comments: TAKE 1 CAPSULE BY MOUTH ONCE DAILY Referrals / Follow Up: Micheal Medina MD [Med Staff - Active Staff] - Within 2 Weeks (call for appointment) Milady Vizcarra MD [Primary Care Provider] - In 1 Week (Call for appointment) Disposition Disposition (needs filled in before D/C Order can be placed): Home, Self Care Charges/Coding Visit Charges Inpatient E&M: 40228 Disch Hosp
--- NOTE | 2021-11-28 11:42 | CASEMGMT ---
[facility] called [facility] to verify cost of Eliquis, copay is $175.28. Eliquis savings card provided over the phone to pharmacy. Patient give savings card should there be any issues. Patient updated regarding cost and to follow-up with town marshal if too expensive for alternative treatment. Son provided with physicians directory for follow-up care. Patient and family had no further questions or concerns at this time.
[2021-11-28] MEDS: APIXABAN 5 MG TABLET 10 MG PO (12:25)
--- NOTE | 2021-11-28 13:53 | NURSING ---
Reviewed charting with Aram Multani RN
== END 2021-11-28 13:39 | disposition home or self-care (01) | DRG 176 ==
LOC: ED 03:02 → PCU 03:28
PROVIDERS: Admitting Provider Family Medicine; Emergency Provider Emergency Medicine; PCP Internal Medicine; Visit Provider Internal Medicine
DX: I26.92 Saddle embolus of pulmonary artery without acute cor pulmonale (principal); D45 Polycythemia vera; J45.909 Unspecified asthma, uncomplicated; M19.90 Unspecified osteoarthritis, unspecified site; I51.7 Cardiomegaly; Z87.891 Personal history of nicotine dependence; Z79.51 Long term (current) use of inhaled steroids; R09.02 Hypoxemia; Z79.2 Long term (current) use of antibiotics; Z86.718 Personal history of other venous thrombosis and embolism
CPT/HCPCS: 36415; 71045; 71275; 80048; 80053; 80061; 80076; 82728; 83615; 83735; 83880; 84145; 84484; 85025; 85379; 85610; 85730; 86140; 87449; 87633; 87635; 93005; 93306; 94640; 97162; 97166; 99284; J7030; Q9967; U0003; U0005